=== PATIENT | female | born 1940 | race Two or more races ===

== ENCOUNTER 2017-05-21 09:28 | Emergency (ER) | payer MEDICARE, OTHER ==
[~2017-05-21] VITALS: Ht 160 cm; Wt 83.0 kg
[2017-05-21] MEDS ORDERED: PLAV1TAB2 PO (09:54)
[2017-05-21] MEDS ORDERED: FLON1SPR (09:54)
[2017-05-21] MEDS ORDERED: RISP2TAB32 PO (09:54)
[2017-05-21] MEDS ORDERED: KLOR20PO12 PO (09:54)
[2017-05-21] MEDS ORDERED: BENI5TAB3 PO (09:54)
[2017-05-21] MEDS ORDERED: BIOT10008 PO (09:54)
[2017-05-21] MEDS ORDERED: MULTCAP11 PO (09:54)
[2017-05-21] MEDS ORDERED: SIMV40TA2 PO (09:54)
[2017-05-21] MEDS ORDERED: NITR4TASL SL (09:54)
[2017-05-21] MEDS ORDERED: DEPA1TAB3 PO (09:54)
[2017-05-21] MEDS ORDERED: LASI40TA PO (09:54)
[2017-05-21] MEDS ORDERED: ASPI81TA85 PO (09:54)
[2017-05-21] MEDS ORDERED: BENZ0.5T PO (09:54)
[2017-05-21] MEDS ORDERED: NITROGLYCERIN 0.4 MG SUBL TABLET SL PRN (10:00)
--- NOTE | 2017-05-21 10:22 | REP ---
Portable chest: Single view. History: Chest pain. Comparison study: No comparison study. Findings: The lungs are symmetrically aerated and free of infiltrate. Pleural angles are sharp. Heart is prominent consistent with mild cardiomegaly. There is a granulomatous lymph node calcification in the aortopulmonary window region of the mediastinum. Pulmonary vasculature is not increased. No infiltrate is seen. There is no evidence of pulmonary edema or pleural effusion. Impression: Mild cardiomegaly. Old granulomatous changes. Otherwise no acute disease. Signed by Ze Holley MD 05/21/2017 10:13 A
[2017-05-21 10:23] LABS: BASO % 0.7 % (0.0-1.0); EOS % 0.5 % (0.0-3.0); IMMATURE GRANULOCYTE % 0.4 % (0-0); LYMPH # 0.8 10^3/uL (1.5-4.5); LYMPH % 13.8 % (24.0-44.0); MEAN CORPUSCULAR HEMOGLOBIN 28.8 pg (27.0-33.0); MEAN CORPUSCULAR HGB CONC 32.9 g/dl (32.0-36.5); MEAN CORPUSCULAR VOLUME 87.6 fl (80.0-96.0); MONO # 0.8 10^3/uL (0.0-0.8); MONO % 13.8 % (0.0-5.0); NEUTROPHILS % 70.8 % (36.0-66.0); PLATELET COUNT, AUTOMATED 117 10^3/uL (150-450); RED CELL DISTRIBUTION WIDTH 14.7 % (11.5-14.5); WHITE BLOOD COUNT 5.6 10^3/uL (4.0-10.0)
[2017-05-21 10:53] LABS: ALBUMIN 2.9 GM/DL (3.2-5.2); ALKALINE PHOSPHATASE 63 U/L (45-117); ALT/SGPT 18 U/L (12-78); ANION GAP 7 MEQ/L (8-16); AST/SGOT 12 U/L (15-37); BILIRUBIN,DIRECT 0.1 MG/DL (0.0-0.2); BILIRUBIN,TOTAL 0.2 MG/DL (0.2-1.0); BLOOD UREA NITROGEN 17 MG/DL (7-18); CALCIUM LEVEL 8.5 MG/DL (8.8-10.2); CARBON DIOXIDE LEVEL 29 MEQ/L (21-32); CHLORIDE LEVEL 110 MEQ/L (98-107); CREATININE FOR GFR 0.51 MG/DL (0.55-1.02); GLOMERULAR FILTRATION RATE > 60.0 (>39); GLUCOSE, FASTING 92 MG/DL (83-110); POTASSIUM SERUM 3.6 MEQ/L (3.5-5.1); SODIUM LEVEL 146 MEQ/L (136-145); TOTAL PROTEIN 5.8 GM/DL (6.4-8.2)
[2017-05-21 15:49] VITALS: BP 165/75
--- NOTE | 2017-05-21 20:34 | ECGEPIP ---
Stationary ECG Study [facility] - ED Test Date: 2017-05-21 Pat Name: BUBBA CHI Department: Room: - Gender: F Director Geophysical Laboratory: shilpa : 1940 Requested By: Ruddy Alba Order Number: [id number] Reading MD: Misti Hernandez Measurements Intervals [place] Rate: 62 P: 13 PA: 147 QRS: -2 QRSD: 89 T: 91 QT: 415 QTc: 422 Interpretive Statements SINUS RHYTHM NONSPECIFIC T-WAVE ABNORMALITY DELAYED R PROGRESSION BASELINE ARTIFACT LIMITS INTERPRETATION NO PRIOR FOR COMPARISON Electronically Signed On 05-21-2017 20:33:50 EDT by Misti Hernandez
--- NOTE | 2017-05-21 20:40 | ECGEPIP ---
Stationary ECG Study [facility] - ED Test Date: 2017-05-21 Pat Name: BUBBA CHI Department: Room: - Gender: F Shaft Sinker: Paula : 1940 Requested By: Ruddy Alba Order Number: [id number] Reading MD: Misti Hernandez Measurements Intervals [place] Rate: 52 P: 41 TN: 161 QRS: -6 QRSD: 92 T: 94 QT: 453 QTc: 423 Interpretive Statements SINUS BRADYCARDIA MINIMAL VOLTAGE CRITERIA FOR LVH, CONSIDER NORMAL VARIANT MODERATE T-WAVE ABNORMALITY, CONSIDER ANTEROLATERAL ISCHEMIA, COMPARED 05/21/17 Electronically Signed On 05-21-2017 20:39:43 EDT by Misti Hernandez
== END 2017-05-21 15:50 | disposition home or self-care (01) ==
LOC: EDBD 09:28 → M ED 09:28
DX: R07.89 Other chest pain (principal); R00.1 Bradycardia, unspecified; R94.31 Abnormal electrocardiogram [ECG] [EKG]; I51.7 Cardiomegaly; I25.10 Atherosclerotic heart disease of native coronary artery without angina pectoris; E78.5 Hyperlipidemia, unspecified; I10 Essential (primary) hypertension; F41.9 Anxiety disorder, unspecified; Z95.5 Presence of coronary angioplasty implant and graft; Z87.891 Personal history of nicotine dependence; Z79.82 Long term (current) use of aspirin; Z79.899 Other long term (current) drug therapy; Z88.6 Allergy status to analgesic agent; Z88.8 Allergy status to other drugs, medicaments and biological substances; Z88.5 Allergy status to narcotic agent; Z88.1 Allergy status to other antibiotic agents; Z91.89 Other specified personal risk factors, not elsewhere classified

== ENCOUNTER → 2017-06-05 | Outpatient (REF) | payer MEDICARE, OTHER ==
[~2017-06-05] MED LIST: ASPI81TA85 PO; BENI5TAB3 PO; BENZ0.5T PO; BIOT10008 PO; DEPA1TAB3 PO; FLON1SPR; KLOR20PO12 PO; LASI40TA PO; MULTCAP11 PO; NITR4TASL SL; PLAV1TAB2 PO; RISP2TAB32 PO; SIMV40TA2 PO
== END ==
LOC: M LABDRAWP 12:50
PROVIDERS: ATTEND Internal Medicine Cardiovascular Disease
DX: E78.00 Pure hypercholesterolemia, unspecified (principal); I50.32 Chronic diastolic (congestive) heart failure

== ENCOUNTER → 2017-07-25 | Outpatient (REF) | payer MEDICARE, OTHER | LOC: M SFHCWAGY 10:16 | PROVIDERS: ATTEND Nurse Practitioner Women's Health | DX: Z12.4 Encounter for screening for malignant neoplasm of cervix (principal) ==

== ENCOUNTER → 2017-07-25 | Outpatient (CLI) | payer MEDICARE, OTHER ==
--- NOTE | 2017-07-26 10:16 | REP ---
BILATERAL SCREENING DIGITAL MAMMOGRAM: There are no palpable abnormalities or other breast complaints. The patient states she/he had a clinical breast exam in 07/2017. Comparison is 07/04/2015. There is moderately dense breast parenchyma, unchanged. There are benign calcifications. There has been no interval development of masses, areas of structural distortion or clusters of microcalcifications typical of malignancy. IMPRESSION:There is no evidence of malignancy. BI-RADS category 2 benign findings. The patient should have a repeat mammogram in 1 year. This mammogram was interpreted with the aid of an FDA-approved computer-aided detection system. A. Negative x-ray reports should not delay biopsy if a dominant or clinically suspicious mass is present. B. Not all breast cancers are identified by x-ray. C. Adenosis and dense breasts may obscure an underlying neoplasm. Patient letter M1.
== END ==
LOC: M WHC 09:21 → EDUNIT# 10:00
PROVIDERS: ATTEND Physician Assistant Medical
DX: Z12.31 Encounter for screening mammogram for malignant neoplasm of breast (principal)

== ENCOUNTER → 2017-08-02 | Outpatient (REF) | payer MEDICARE, OTHER ==
[2017-08-02 12:04] LABS: MAGNESIUM LEVEL 2.4 MG/DL (1.8-2.4)
== END ==
LOC: M LABDRAWP 11:26
PROVIDERS: ATTEND Internal Medicine Cardiovascular Disease
DX: I50.42 Chronic combined systolic (congestive) and diastolic (congestive) heart failure (principal); Z51.81 Encounter for therapeutic drug level monitoring; Z79.899 Other long term (current) drug therapy

== ENCOUNTER → 2017-08-02 | Outpatient (REF) | payer MEDICARE, OTHER ==
[2017-08-02 12:03] LABS: ALBUMIN 3.4 GM/DL (3.2-5.2); ALKALINE PHOSPHATASE 64 U/L (45-117); ALT/SGPT 15 U/L (12-78); ANION GAP 6 MEQ/L (8-16); AST/SGOT 12 U/L (7-37); BILIRUBIN,TOTAL 0.5 MG/DL (0.2-1.0); BLOOD UREA NITROGEN 24 MG/DL (7-18); CALCIUM LEVEL 8.3 MG/DL (8.8-10.2); CARBON DIOXIDE LEVEL 31 MEQ/L (21-32); CHLORIDE LEVEL 109 MEQ/L (98-107); CHOLESTEROL LEVEL 109 MG/DL (<200); CREATININE FOR GFR 0.57 MG/DL (0.55-1.02); GLOMERULAR FILTRATION RATE > 60.0 (>39); GLUCOSE, FASTING 80 MG/DL (83-110); POTASSIUM SERUM 3.8 MEQ/L (3.5-5.1); SODIUM LEVEL 146 MEQ/L (136-145); TOTAL PROTEIN 6.5 GM/DL (6.4-8.2); TRIGLYCERIDES LEVEL 56 MG/DL (<150)
== END ==
LOC: M SFHCPLAZ 08:38
PROVIDERS: ATTEND Physician Assistant Medical
DX: E78.00 Pure hypercholesterolemia, unspecified (principal)

== ENCOUNTER → 2017-08-02 | Outpatient (REF) | payer MEDICARE, OTHER | LOC: M LABDRAWP 11:23 | PROVIDERS: ATTEND Psychiatry & Neurology Psychiatry | DX: Z51.81 Encounter for therapeutic drug level monitoring (principal); Z79.899 Other long term (current) drug therapy ==

== ENCOUNTER → 2017-08-09 | Outpatient (REF) | payer MEDICARE, OTHER ==
[2017-08-09 15:57] LABS: ANION GAP 6 MEQ/L (8-16); BLOOD UREA NITROGEN 26 MG/DL (7-18); CALCIUM LEVEL 8.9 MG/DL (8.8-10.2); CARBON DIOXIDE LEVEL 32 MEQ/L (21-32); CHLORIDE LEVEL 108 MEQ/L (98-107); GLOMERULAR FILTRATION RATE > 60.0 (>39); GLUCOSE, FASTING 75 MG/DL (83-110); POTASSIUM SERUM 4.2 MEQ/L (3.5-5.1); SODIUM LEVEL 146 MEQ/L (136-145)
== END ==
LOC: M SFHCPLAZ 12:07
DX: I50.22 Chronic systolic (congestive) heart failure (principal)
CPT/HCPCS: 80048

== ENCOUNTER → 2017-08-15 | Outpatient (REF) | payer MEDICARE, OTHER | LOC: M SFHCLERA 11:52 | DX: L57.8 Other skin changes due to chronic exposure to nonionizing radiation (principal); D23.39 Other benign neoplasm of skin of other parts of face | CPT/HCPCS: 88305 ==

== ENCOUNTER → 2017-12-16 | Outpatient (REF) | payer MEDICARE, OTHER ==
[2017-12-16 15:59] LABS: BASO % 0.6 % (0.0-1.0); EOS % 0.5 % (0.0-3.0); HEMATOCRIT 38.8 % (36.0-47.0); HEMOGLOBIN 12.9 g/dl (12.0-15.5); IMMATURE GRANULOCYTE % 0.2 % (0-3.0); LYMPH # 1.2 10^3/uL (1.5-4.5); LYMPH % 19.6 % (24.0-44.0); MEAN CORPUSCULAR HEMOGLOBIN 29.4 pg (27.0-33.0); MEAN CORPUSCULAR HGB CONC 33.2 g/dl (32.0-36.5); MEAN CORPUSCULAR VOLUME 88.4 fl (80.0-96.0); MONO # 0.8 10^3/uL (0.0-0.8); NEUTROPHILS # 4.2 10^3/uL (1.8-7.7); NEUTROPHILS % 67.1 % (36.0-66.0); PLATELET COUNT, AUTOMATED 113 10^3/uL (150-450); RED BLOOD COUNT 4.39 10^6/uL (4.00-5.40); RED CELL DISTRIBUTION WIDTH 14.4 % (11.5-14.5); WHITE BLOOD COUNT 6.2 10^3/uL (4.0-10.0)
[2017-12-16 16:00] LABS: APPEARANCE, URINE HAZY (CLEAR); BACTERIA, URINE AUTO NEGATIVE (NEGATIVE); BILIRUBIN, URINE AUTO NEGATIVE (NEGATIVE); BLOOD, URINE BLOOD NEGATIVE (NEGATIVE); COLOR, URINE YELLOW (YELLOW); GLUCOSE, URINE (UA) AUTO NEGATIVE (NEGATIVE); KETONE, URINE AUTO NEGATIVE (NEGATIVE); LEUKOCYTE ESTERASE, URINE AUTO 1+ (NEGATIVE); NITRITE, URINE AUTO NEGATIVE (NEGATIVE); PROTEIN, URINE AUTO NEGATIVE (NEGATIVE); RBC, URINE AUTO 1 /HPF (0-3); SPECIFIC GRAVITY URINE AUTO 1.014 (1.002-1.035); SQUAMOUS EPITHELIAL CELL UR AU 2 /HPF (0-6); UROBILINOGEN, URINE AUTO 0.2 mg/dL (0.0-2.0); WBC, URINE AUTO 6 /HPF (0-3)
== END ==
LOC: M SFHCPLAZ 14:24
DX: R31.0 Gross hematuria (principal)
CPT/HCPCS: 85025

== ENCOUNTER → 2017-12-17 | Outpatient (CLI) | payer MEDICARE, OTHER | LOC: M WHC 12:52 | DX: N95.0 Postmenopausal bleeding (principal); N85.8 Other specified noninflammatory disorders of uterus | CPT/HCPCS: 76830 ==

== ENCOUNTER → 2018-01-24 | Outpatient (REF) | payer MEDICARE, OTHER ==
[2018-01-24 14:01] LABS: ALBUMIN 3.1 GM/DL (3.2-5.2); ALBUMIN/GLOBULIN RATIO 0.94 (1.00-1.93); ALKALINE PHOSPHATASE 58 U/L (45-117); ALT/SGPT 15 U/L (12-78); AST/SGOT 12 U/L (7-37); BILIRUBIN,DIRECT 0.2 MG/DL (0.0-0.2); BILIRUBIN,TOTAL 0.6 MG/DL (0.2-1.0); TOTAL PROTEIN 6.4 GM/DL (6.4-8.2); VALPROIC ACID (DEPAKOTE) 52.1 UG/ML (50.0-100.0)
== END ==
LOC: M LABDRAWP 12:34
DX: Z51.81 Encounter for therapeutic drug level monitoring (principal); Z79.899 Other long term (current) drug therapy

== ENCOUNTER → 2018-01-24 | Outpatient (REF) | payer MEDICARE, OTHER ==
[2018-01-24 13:15] LABS: ALBUMIN 3.2 GM/DL (3.2-5.2); ALKALINE PHOSPHATASE 55 U/L (45-117); ALT/SGPT 16 U/L (12-78); ANION GAP 6 MEQ/L (8-16); AST/SGOT 12 U/L (7-37); BILIRUBIN,TOTAL 0.6 MG/DL (0.2-1.0); BLOOD UREA NITROGEN 16 MG/DL (7-18); CALCIUM LEVEL 8.4 MG/DL (8.8-10.2); CARBON DIOXIDE LEVEL 29 MEQ/L (21-32); CHLORIDE LEVEL 105 MEQ/L (98-107); CREATININE FOR GFR 0.56 MG/DL (0.55-1.30); GLOMERULAR FILTRATION RATE > 60.0 (>39); GLUCOSE, FASTING 73 MG/DL (70-100); NT-PRO BNP 1403 PG/ML (<450); POTASSIUM SERUM 3.9 MEQ/L (3.5-5.1); SODIUM LEVEL 140 MEQ/L (136-145); TOTAL PROTEIN 6.4 GM/DL (6.4-8.2)
== END ==
LOC: M SFHCPLAZ 07:30
DX: I50.22 Chronic systolic (congestive) heart failure (principal); Z51.81 Encounter for therapeutic drug level monitoring; Z79.899 Other long term (current) drug therapy
CPT/HCPCS: 80164

== ENCOUNTER → 2018-01-27 | Outpatient (REF) | payer MEDICARE, OTHER ==
[2018-01-27 16:16] LABS: ALBUMIN 3.2 GM/DL (3.2-5.2); ALBUMIN/GLOBULIN RATIO 0.97 (1.00-1.93); ALKALINE PHOSPHATASE 59 U/L (45-117); ALT/SGPT 19 U/L (12-78); ANION GAP 7 MEQ/L (8-16); AST/SGOT 12 U/L (7-37); BILIRUBIN,TOTAL 0.3 MG/DL (0.2-1.0); BLOOD UREA NITROGEN 17 MG/DL (7-18); CALCIUM LEVEL 8.8 MG/DL (8.8-10.2); CARBON DIOXIDE LEVEL 30 MEQ/L (21-32); CHLORIDE LEVEL 107 MEQ/L (98-107); CREATININE FOR GFR 0.54 MG/DL (0.55-1.30); GLOMERULAR FILTRATION RATE > 60.0 (>39); GLUCOSE, FASTING 79 MG/DL (70-100); NT-PRO BNP 1676 PG/ML (<450); POTASSIUM SERUM 3.9 MEQ/L (3.5-5.1); SODIUM LEVEL 144 MEQ/L (136-145); TOTAL PROTEIN 6.5 GM/DL (6.4-8.2)
== END ==
LOC: M SFHCPLAZ 13:40
DX: I50.22 Chronic systolic (congestive) heart failure (principal)
CPT/HCPCS: 80053

== ENCOUNTER → 2018-02-10 | Outpatient (REF) | payer MEDICARE, OTHER ==
[2018-02-10 12:04] LABS: ALBUMIN 3.4 GM/DL (3.2-5.2); ALBUMIN/GLOBULIN RATIO 1.03 (1.00-1.93); ALKALINE PHOSPHATASE 63 U/L (45-117); ALT/SGPT 19 U/L (12-78); ANION GAP 8 MEQ/L (8-16); AST/SGOT 25 U/L (7-37); BILIRUBIN,TOTAL 0.5 MG/DL (0.2-1.0); BLOOD UREA NITROGEN 16 MG/DL (7-18); CARBON DIOXIDE LEVEL 29 MEQ/L (21-32); CHLORIDE LEVEL 108 MEQ/L (98-107); CREATININE FOR GFR 0.52 MG/DL (0.55-1.30); GLOMERULAR FILTRATION RATE > 60.0 (>39); GLUCOSE, FASTING 90 MG/DL (70-100); NT-PRO BNP 1627 PG/ML (<450); SODIUM LEVEL 145 MEQ/L (136-145); TOTAL PROTEIN 6.7 GM/DL (6.4-8.2)
== END ==
LOC: M SFHCPLAZ 09:08
DX: I50.22 Chronic systolic (congestive) heart failure (principal)
CPT/HCPCS: 80053

== ENCOUNTER 2018-03-07 12:41 | Day surgery (SDC) | payer MEDICARE, OTHER ==
[2018-03-07] MEDS: NS 1,000 ML IV (12:00)
[2018-03-07] MEDS ORDERED: LIDOCAINE 2% INJ 100 MG/5 ML SDV (FOR ANES.) As Ordered (13:26)
[2018-03-07] MEDS ORDERED: PROPOFOL 200 MG/20 ML VIAL As Ordered (13:26)
== END 2018-03-07 15:12 | disposition home or self-care (01) ==
LOC: M OPP 12:41
DX: K64.0 First degree hemorrhoids (principal); K57.30 Diverticulosis of large intestine without perforation or abscess without bleeding; R19.5 Other fecal abnormalities; I10 Essential (primary) hypertension; E78.00 Pure hypercholesterolemia, unspecified; Z79.82 Long term (current) use of aspirin; Z79.899 Other long term (current) drug therapy; Z88.8 Allergy status to other drugs, medicaments and biological substances; Z91.040 Latex allergy status; Z90.49 Acquired absence of other specified parts of digestive tract; Z95.5 Presence of coronary angioplasty implant and graft
CPT/HCPCS: 45378

== ENCOUNTER → 2018-03-18 | Outpatient (REF) | payer MEDICARE, OTHER | LOC: M SFHCPLAZ 13:05 | DX: J02.9 Acute pharyngitis, unspecified (principal) | CPT/HCPCS: 87070 ==

== ENCOUNTER 2018-03-19 18:20 | Inpatient (IN) | payer MEDICARE, OTHER ==
[2018-03-19] MEDS: NS 500 ML IV (19:58)
[2018-03-19 20:19] LABS: BASO % 0.1 % (0.0-1.0); HEMATOCRIT 35.8 % (36.0-47.0); HEMOGLOBIN 11.9 g/dl (12.0-15.5); IMMATURE GRANULOCYTE % 1.4 % (0-3.0); LYMPH # 0.4 10^3/uL (1.5-4.5); LYMPH % 2.6 % (24.0-44.0); MEAN CORPUSCULAR HEMOGLOBIN 29.5 pg (27.0-33.0); MEAN CORPUSCULAR HGB CONC 33.2 g/dl (32.0-36.5); MEAN CORPUSCULAR VOLUME 88.8 fl (80.0-96.0); MONO # 0.6 10^3/uL (0.0-0.8); MONO % 4.2 % (0.0-5.0); NEUTROPHILS # 13.7 10^3/uL (1.8-7.7); NEUTROPHILS % 91.7 % (36.0-66.0); RED BLOOD COUNT 4.03 10^6/uL (4.00-5.40); RED CELL DISTRIBUTION WIDTH 14.3 % (11.5-14.5); WHITE BLOOD COUNT 14.9 10^3/uL (4.0-10.0)
[2018-03-19 20:22] LABS: ALBUMIN 2.8 GM/DL (3.2-5.2); ALBUMIN/GLOBULIN RATIO 0.93 (1.00-1.93); ALKALINE PHOSPHATASE 52 U/L (45-117); ALT/SGPT 19 U/L (12-78); ANION GAP 11 MEQ/L (8-16); AST/SGOT 17 U/L (7-37); BILIRUBIN,DIRECT 0.4 MG/DL (0.0-0.2); BILIRUBIN,TOTAL 0.9 MG/DL (0.2-1.0); BLOOD UREA NITROGEN 26 MG/DL (7-18); CALCIUM LEVEL 8.4 MG/DL (8.8-10.2); CARBON DIOXIDE LEVEL 25 MEQ/L (21-32); CHLORIDE LEVEL 101 MEQ/L (98-107); CPK CREATINE PHOSPHOKINASE 97 U/L (26-192); CREATININE FOR GFR 0.63 MG/DL (0.55-1.30); GLOMERULAR FILTRATION RATE > 60.0 (>39); GLUCOSE, FASTING 115 MG/DL (70-100); LIPASE 54 U/L (73-393); POTASSIUM SERUM 2.9 MEQ/L (3.5-5.1); SODIUM LEVEL 137 MEQ/L (136-145); TOTAL PROTEIN 5.8 GM/DL (6.4-8.2); TROPONIN I 0.08 NG/ML (< 0.10); VALPROIC ACID (DEPAKOTE) 19.3 UG/ML (50.0-100.0)
[2018-03-19 20:23] LABS: CK-MB VALUE MASS < 1.0 NG/ML (<3.6); MB/CK RELATIVE INDEX 1.03 (< OR =4)
[2018-03-19 21:32] LABS: KETONE, URINE AUTO RFX TRACE mg/dL (NEGATIVE); MUCUS, URINE RFX SMALL (NEGATIVE); NITRITE, URINE AUTO RFX NEGATIVE (NEGATIVE); RBC, URINE AUTO RFX 16 /HPF (0-3); SPECIFIC GRAVITY UR AUTO RFX 1.025 (1.002-1.035); SQUAM EPITHELIAL CELL UR AURFX 4 /HPF (0-6); WBC, URINE AUTO RFX 10 /HPF (0-3)
[2018-03-19 21:38] LABS: LEUKOCYTE ESTERASE UR AUTO RFX TRACE (NEGATIVE)
[2018-03-19 21:39] LABS: IMMATURE PLATELET FRACTION % 20.3 % (0.0-9.6); PLATELET COUNT, AUTOMATED 67 10^3/uL (150-450)
[2018-03-19] MEDS: POTASSIUM CHLORIDE 10 MEQ SR TABLET PO (21:47)
[2018-03-19] MEDS: cefTRIAXone SOD 1 GM in D5W MINI-BAG PLUS 50 ML IV (22:15)
[2018-03-19 22:45] LABS: LACTIC ACID SEPSIS PROTOCOL 1.2 MMOL/L (0.4-2.0)
[2018-03-19] MEDS ORDERED: NITROGLYCERIN 0.4 MG SUBL TABLET SL (23:45)
[2018-03-20] MEDS ORDERED: ISOVUE-370 76% 100ML VIAL (Q9967) As Ordered (00:06)
[2018-03-20] MEDS: risperiDONE 1 MG TAB PO (00:33)
[2018-03-20] MEDS: BENZTROPINE 0.5 MG TAB PO (00:33)
[2018-03-20 01:02] LABS: MAGNESIUM LEVEL 1.9 MG/DL (1.8-2.4)
[2018-03-20] MEDS: KCL 10MEQ/100ML SWI (KRUN) 10 MEQ in APPROPRIATE DILUENT 1 EA IV ×4 (02:00→07:35)
[2018-03-20] MEDS: CLINDAMYCIN 600 MG in APPROPRIATE DILUENT 1 EA IV ×4 (02:00→19:51)
[2018-03-20] MEDS: dexameTHASONE 20 MG/5 ML VIAL (J1100) IV ×3 (02:15→18:20)
[2018-03-20] MEDS: NS 1,000 ML IV ×2 (02:15→16:25)
[2018-03-20] MEDS: ACETAMINOPHEN TAB 650MG DOSE (2X325MG) PO (03:17)
[2018-03-20] MEDS: POTASSIUM CHLORIDE 10 MEQ SR TABLET PO (03:17)
[2018-03-20] MEDS ORDERED: PILL CRUSHER/CUTTER 1 EACH XX (04:45)
[2018-03-20 05:35] LABS: BASO % 0.1 % (0.0-1.0); HEMOGLOBIN 11.8 g/dl (12.0-15.5); IMMATURE GRANULOCYTE % 1.3 % (0-3.0); LYMPH # 0.3 10^3/uL (1.5-4.5); LYMPH % 1.4 % (24.0-44.0); MEAN CORPUSCULAR HEMOGLOBIN 29.1 pg (27.0-33.0); MEAN CORPUSCULAR HGB CONC 32.8 g/dl (32.0-36.5); MEAN CORPUSCULAR VOLUME 88.7 fl (80.0-96.0); MONO % 5.2 % (0.0-5.0); NEUTROPHILS # 17.4 10^3/uL (1.8-7.7); RED BLOOD COUNT 4.06 10^6/uL (4.00-5.40); RED CELL DISTRIBUTION WIDTH 14.6 % (11.5-14.5); WHITE BLOOD COUNT 18.9 10^3/uL (4.0-10.0)
[2018-03-20 05:39] LABS: PLATELET COUNT, AUTOMATED 73 10^3/uL (150-450); POSITIVE DIFF POS FLAG
[2018-03-20 05:46] LABS: ANION GAP 7 MEQ/L (8-16); BLOOD UREA NITROGEN 23 MG/DL (7-18); CALCIUM LEVEL 8.5 MG/DL (8.8-10.2); CARBON DIOXIDE LEVEL 26 MEQ/L (21-32); CHLORIDE LEVEL 103 MEQ/L (98-107); CREATININE FOR GFR 0.57 MG/DL (0.55-1.30); GLOMERULAR FILTRATION RATE > 60.0 (>39); GLUCOSE, FASTING 133 MG/DL (70-100); POTASSIUM SERUM 4.7 MEQ/L (3.5-5.1); SODIUM LEVEL 136 MEQ/L (136-145)
[2018-03-20] MEDS ORDERED: FUROSEMIDE 40 MG TAB PO (09:00)
[2018-03-20] MEDS: ASPIRIN 81 MG ENTERIC TAB PO (09:16)
[2018-03-20] MEDS: NYSTATIN 500,000 U/5 ML SUSP UDC SS ×3 (09:16→20:13)
[2018-03-20] MEDS: MULTIVITAMINS/MINERALS THERAP 1 TAB PO (09:16)
[2018-03-20] MEDS: FLUTICASONE PROP 0.05% NASAL SPRAY 16 GM (FLONASE) NARES (09:17)
[2018-03-20] MEDS: CANDESARTAN 16 MG TABLET PO (11:23)
[2018-03-20] MEDS: NYSTATIN 100,000 UNITS/GM TOPICAL PWD 15 GM TOP (19:56)
[2018-03-20] MEDS ORDERED: SIMVASTATIN 20 MG TAB PO (21:00)
[2018-03-20] MEDS ORDERED: DIVALPROEX 500 MG TAB PO (21:00)
[2018-03-20] MEDS ORDERED: cefTRIAXone SOD 1 GM in D5W MINI-BAG PLUS 50 ML IV (23:00)
[2018-03-21] MEDS: dexameTHASONE 20 MG/5 ML VIAL (J1100) IV ×3 (02:03→17:45)
[2018-03-21] MEDS: CLINDAMYCIN 600 MG in APPROPRIATE DILUENT 1 EA IV ×4 (02:04→20:26)
[2018-03-21 06:53] LABS: HEMATOCRIT 35.1 % (36.0-47.0); HEMOGLOBIN 11.9 g/dl (12.0-15.5); MEAN CORPUSCULAR HEMOGLOBIN 29.8 pg (27.0-33.0); MEAN CORPUSCULAR HGB CONC 33.9 g/dl (32.0-36.5); RED BLOOD COUNT 3.99 10^6/uL (4.00-5.40); RED CELL DISTRIBUTION WIDTH 14.5 % (11.5-14.5); WHITE BLOOD COUNT 11.1 10^3/uL (4.0-10.0)
[2018-03-21 06:57] LABS: PLATELET COUNT, AUTOMATED 79 10^3/uL (150-450)
[2018-03-21 06:58] LABS: IMMATURE PLATELET FRACTION % 26.9 % (0.0-9.6); PLATELET F 21.3
[2018-03-21 07:00] LABS: ANION GAP 8 MEQ/L (8-16); BLOOD UREA NITROGEN 26 MG/DL (7-18); CALCIUM LEVEL 8.4 MG/DL (8.8-10.2); CARBON DIOXIDE LEVEL 24 MEQ/L (21-32); CHLORIDE LEVEL 107 MEQ/L (98-107); CREATININE FOR GFR 0.54 MG/DL (0.55-1.30); GLOMERULAR FILTRATION RATE > 60.0 (>39); GLUCOSE, FASTING 146 MG/DL (70-100); POTASSIUM SERUM 4.8 MEQ/L (3.5-5.1); SODIUM LEVEL 139 MEQ/L (136-145)
[2018-03-21] MEDS: NYSTATIN 500,000 U/5 ML SUSP UDC SS ×3 (09:34→20:13)
[2018-03-21] MEDS: NYSTATIN 100,000 UNITS/GM TOPICAL PWD 15 GM TOP ×2 (09:34→20:18)
[2018-03-21] MEDS: FLUTICASONE PROP 0.05% NASAL SPRAY 16 GM (FLONASE) NARES (09:35)
[2018-03-21] MEDS: MULTIVITAMINS/MINERALS THERAP 1 TAB PO (11:20)
[2018-03-21] MEDS: ASPIRIN 81 MG ENTERIC TAB PO (11:20)
[2018-03-21] MEDS: CANDESARTAN 16 MG TABLET PO (11:20)
[2018-03-21] MEDS: BENZTROPINE 0.5 MG TAB PO (20:16)
[2018-03-21] MEDS: risperiDONE 1 MG TAB PO (20:17)
[2018-03-21] MEDS: SIMVASTATIN 20 MG TAB PO (20:17)
[2018-03-21] MEDS: DIVALPROEX 500 MG TAB PO (20:18)
[2018-03-22] MEDS: CLINDAMYCIN 600 MG in APPROPRIATE DILUENT 1 EA IV ×4 (02:12→20:41)
[2018-03-22] MEDS: dexameTHASONE 20 MG/5 ML VIAL (J1100) IV ×2 (02:12→10:27)
[2018-03-22 04:39] LABS: HEMATOCRIT 34.8 % (36.0-47.0); HEMOGLOBIN 11.7 g/dl (12.0-15.5); MEAN CORPUSCULAR HEMOGLOBIN 29.5 pg (27.0-33.0); MEAN CORPUSCULAR HGB CONC 33.6 g/dl (32.0-36.5); MEAN CORPUSCULAR VOLUME 87.7 fl (80.0-96.0); PLATELET COUNT, AUTOMATED 99 10^3/uL (150-450); RED BLOOD COUNT 3.97 10^6/uL (4.00-5.40); RED CELL DISTRIBUTION WIDTH 14.3 % (11.5-14.5); WHITE BLOOD COUNT 8.9 10^3/uL (4.0-10.0)
[2018-03-22 04:57] LABS: ANION GAP 6 MEQ/L (8-16); BLOOD UREA NITROGEN 28 MG/DL (7-18); CALCIUM LEVEL 8.3 MG/DL (8.8-10.2); CARBON DIOXIDE LEVEL 26 MEQ/L (21-32); CHLORIDE LEVEL 108 MEQ/L (98-107); CREATININE FOR GFR 0.45 MG/DL (0.55-1.30); GLOMERULAR FILTRATION RATE > 60.0 (>39); GLUCOSE, FASTING 144 MG/DL (70-100); POTASSIUM SERUM 4.6 MEQ/L (3.5-5.1); SODIUM LEVEL 140 MEQ/L (136-145)
[2018-03-22] MEDS: MULTIVITAMINS/MINERALS THERAP 1 TAB PO (08:44)
[2018-03-22] MEDS: CANDESARTAN 16 MG TABLET PO (08:44)
[2018-03-22] MEDS: ASPIRIN 81 MG ENTERIC TAB PO (08:44)
[2018-03-22] MEDS: NYSTATIN 500,000 U/5 ML SUSP UDC SS ×3 (08:44→20:41)
[2018-03-22] MEDS: FLUTICASONE PROP 0.05% NASAL SPRAY 16 GM (FLONASE) NARES (08:45)
[2018-03-22] MEDS: NYSTATIN 100,000 UNITS/GM TOPICAL PWD 15 GM TOP ×2 (08:45→20:43)
[2018-03-22] MEDS ORDERED: predniSONE 20 MG TAB PO (16:00)
[2018-03-22] MEDS: PANTOPRAZOLE 40MG TAB (PROTONIX) PO (18:36)
[2018-03-22] MEDS: risperiDONE 1 MG TAB PO (20:41)
[2018-03-22] MEDS: SIMVASTATIN 20 MG TAB PO (20:41)
[2018-03-22] MEDS: DIVALPROEX 500 MG TAB PO (20:42)
[2018-03-22] MEDS: predniSONE 20 MG TAB PO (20:42)
[2018-03-22] MEDS: BENZTROPINE 0.5 MG TAB PO (20:42)
[2018-03-23] MEDS: CLINDAMYCIN 600 MG in APPROPRIATE DILUENT 1 EA IV ×4 (02:09→21:52)
[2018-03-23 06:31] LABS: HEMATOCRIT 36.1 % (36.0-47.0); HEMOGLOBIN 12.2 g/dl (12.0-15.5); MEAN CORPUSCULAR HGB CONC 33.8 g/dl (32.0-36.5); PLATELET COUNT, AUTOMATED 128 10^3/uL (150-450); RED CELL DISTRIBUTION WIDTH 14.4 % (11.5-14.5); WHITE BLOOD COUNT 10.1 10^3/uL (4.0-10.0)
[2018-03-23 06:55] LABS: ANION GAP 7 MEQ/L (8-16); BLOOD UREA NITROGEN 20 MG/DL (7-18); CALCIUM LEVEL 8.3 MG/DL (8.8-10.2); CARBON DIOXIDE LEVEL 25 MEQ/L (21-32); CHLORIDE LEVEL 110 MEQ/L (98-107); CREATININE FOR GFR 0.43 MG/DL (0.55-1.30); GLOMERULAR FILTRATION RATE > 60.0 (>39); GLUCOSE, FASTING 113 MG/DL (70-100); POTASSIUM SERUM 4.7 MEQ/L (3.5-5.1); SODIUM LEVEL 142 MEQ/L (136-145)
[2018-03-23] MEDS: PANTOPRAZOLE 40MG TAB (PROTONIX) PO (09:00)
[2018-03-23] MEDS: CANDESARTAN 16 MG TABLET PO (09:20)
[2018-03-23] MEDS: ASPIRIN 81 MG ENTERIC TAB PO (09:21)
[2018-03-23] MEDS: MULTIVITAMINS/MINERALS THERAP 1 TAB PO (09:21)
[2018-03-23] MEDS: predniSONE 20 MG TAB PO ×3 (09:21→21:53)
[2018-03-23] MEDS: NYSTATIN 500,000 U/5 ML SUSP UDC SS ×3 (09:28→21:53)
[2018-03-23] MEDS: FLUTICASONE PROP 0.05% NASAL SPRAY 16 GM (FLONASE) NARES (09:29)
[2018-03-23] MEDS: NYSTATIN 100,000 UNITS/GM TOPICAL PWD 15 GM TOP ×2 (09:30→21:54)
[2018-03-23] MEDS: PANTOPRAZOLE 40MG INJ (PROTONIX) (C9113) IV (18:00)
[2018-03-23] MEDS: SIMVASTATIN 20 MG TAB PO (21:52)
[2018-03-23] MEDS: BENZTROPINE 0.5 MG TAB PO (21:52)
[2018-03-23] MEDS: risperiDONE 1 MG TAB PO (21:53)
[2018-03-23] MEDS: DIVALPROEX 500 MG TAB PO (21:53)
[2018-03-24] MEDS: CLINDAMYCIN 600 MG in APPROPRIATE DILUENT 1 EA IV ×3 (01:16→14:03)
[2018-03-24 06:32] LABS: HEMATOCRIT 37.7 % (36.0-47.0); HEMOGLOBIN 13.1 g/dl (12.0-15.5); MEAN CORPUSCULAR HEMOGLOBIN 29.4 pg (27.0-33.0); MEAN CORPUSCULAR HGB CONC 34.7 g/dl (32.0-36.5); MEAN CORPUSCULAR VOLUME 84.7 fl (80.0-96.0); PLATELET COUNT, AUTOMATED 154 10^3/uL (150-450); RED BLOOD COUNT 4.45 10^6/uL (4.00-5.40); RED CELL DISTRIBUTION WIDTH 14.2 % (11.5-14.5); WHITE BLOOD COUNT 8.6 10^3/uL (4.0-10.0)
[2018-03-24 06:50] LABS: ANION GAP 7 MEQ/L (8-16); BLOOD UREA NITROGEN 15 MG/DL (7-18); CALCIUM LEVEL 8.3 MG/DL (8.8-10.2); CARBON DIOXIDE LEVEL 26 MEQ/L (21-32); CHLORIDE LEVEL 109 MEQ/L (98-107); CREATININE FOR GFR 0.45 MG/DL (0.55-1.30); GLOMERULAR FILTRATION RATE > 60.0 (>39); GLUCOSE, FASTING 86 MG/DL (70-100); POTASSIUM SERUM 4.4 MEQ/L (3.5-5.1); SODIUM LEVEL 142 MEQ/L (136-145)
[2018-03-24] MEDS: PANTOPRAZOLE 40MG INJ (PROTONIX) (C9113) IV (08:34)
[2018-03-24] MEDS: MULTIVITAMINS/MINERALS THERAP 1 TAB PO (08:35)
[2018-03-24] MEDS: CANDESARTAN 16 MG TABLET PO (08:35)
[2018-03-24] MEDS: ASPIRIN 81 MG ENTERIC TAB PO (08:35)
[2018-03-24] MEDS: NYSTATIN 500,000 U/5 ML SUSP UDC SS ×2 (08:35→15:42)
[2018-03-24] MEDS: predniSONE 20 MG TAB PO ×2 (08:35→15:42)
[2018-03-24] MEDS: FLUTICASONE PROP 0.05% NASAL SPRAY 16 GM (FLONASE) NARES (08:36)
[2018-03-24] MEDS: NYSTATIN 100,000 UNITS/GM TOPICAL PWD 15 GM TOP (08:36)
[2018-03-24] MEDS ORDERED: AUGMENTIN BID 400MG/5ML SUSP 50ML BTL PO (09:00)
== END 2018-03-24 16:50 | disposition home or self-care (01) | DRG 872 ==
LOC: M ED INP 23:28 → M MS5PR 03-22 14:28 → M ED 18:20 → M ICU 03-20 04:36
DX: A41.9 Sepsis, unspecified organism (principal); J39.0 Retropharyngeal and parapharyngeal abscess; I50.22 Chronic systolic (congestive) heart failure; I11.0 Hypertensive heart disease with heart failure; D69.6 Thrombocytopenia, unspecified; E78.5 Hyperlipidemia, unspecified; F31.9 Bipolar disorder, unspecified; I25.10 Atherosclerotic heart disease of native coronary artery without angina pectoris; Z95.2 Presence of prosthetic heart valve; Z79.82 Long term (current) use of aspirin; Z79.899 Other long term (current) drug therapy; Z88.5 Allergy status to narcotic agent; Z88.8 Allergy status to other drugs, medicaments and biological substances; Z91.040 Latex allergy status

== ENCOUNTER → 2018-03-31 | Outpatient (REF) | payer MEDICARE, OTHER ==
[2018-03-31 12:51] LABS: ALBUMIN 2.9 GM/DL (3.2-5.2); ALKALINE PHOSPHATASE 48 U/L (45-117); ALT/SGPT 29 U/L (12-78); ANION GAP 9 MEQ/L (8-16); AST/SGOT 11 U/L (7-37); BILIRUBIN,TOTAL 0.5 MG/DL (0.2-1.0); BLOOD UREA NITROGEN 20 MG/DL (7-18); CALCIUM LEVEL 8.2 MG/DL (8.8-10.2); CARBON DIOXIDE LEVEL 30 MEQ/L (21-32); CHLORIDE LEVEL 107 MEQ/L (98-107); GLOMERULAR FILTRATION RATE > 60.0 (>39); GLUCOSE, FASTING 94 MG/DL (70-100); POTASSIUM SERUM 3.9 MEQ/L (3.5-5.1); SODIUM LEVEL 146 MEQ/L (136-145); TOTAL PROTEIN 5.8 GM/DL (6.4-8.2)
[2018-03-31 13:06] LABS: BASO % 0.1 % (0.0-1.0); HEMATOCRIT 37.8 % (36.0-47.0); HEMOGLOBIN 12.6 g/dl (12.0-15.5); IMMATURE GRANULOCYTE % 0.4 % (0-3.0); LYMPH # 1.2 10^3/uL (1.5-4.5); LYMPH % 12.3 % (24.0-44.0); MEAN CORPUSCULAR HGB CONC 33.3 g/dl (32.0-36.5); MEAN CORPUSCULAR VOLUME 87.1 fl (80.0-96.0); MONO # 0.7 10^3/uL (0.0-0.8); MONO % 7.7 % (0.0-5.0); NEUTROPHILS # 7.7 10^3/uL (1.8-7.7); NEUTROPHILS % 79.5 % (36.0-66.0); PLATELET COUNT, AUTOMATED 166 10^3/uL (150-450); RED BLOOD COUNT 4.34 10^6/uL (4.00-5.40); RED CELL DISTRIBUTION WIDTH 14.5 % (11.5-14.5); WHITE BLOOD COUNT 9.6 10^3/uL (4.0-10.0)
== END ==
LOC: M SFHCPLAZ 10:27
DX: J02.0 Streptococcal pharyngitis (principal); E87.6 Hypokalemia
CPT/HCPCS: 80053

== ENCOUNTER 2018-04-02 11:07 | Outpatient (RCR) | payer MEDICARE, OTHER | END 2018-04-11 | LOC: M ST 11:07 | DX: R13.10 Dysphagia, unspecified (principal); J39.0 Retropharyngeal and parapharyngeal abscess | CPT/HCPCS: 92610 ==

== ENCOUNTER → 2018-06-06 | Outpatient (REF) | payer MEDICARE, OTHER ==
[2018-06-06 15:59] LABS: VALPROIC ACID (DEPAKOTE) 47.7 UG/ML (50.0-100.0)
== END ==
LOC: M LABDRAWP 12:08
DX: Z51.81 Encounter for therapeutic drug level monitoring (principal); Z79.899 Other long term (current) drug therapy

== ENCOUNTER → 2018-06-06 | Outpatient (REF) | payer MEDICARE, OTHER ==
[2018-06-06 15:28] LABS: ALBUMIN 3.3 GM/DL (3.2-5.2); ALBUMIN/GLOBULIN RATIO 1.18 (1.00-1.93); ALKALINE PHOSPHATASE 62 U/L (45-117); ALT/SGPT 19 U/L (12-78); ANION GAP 8 MEQ/L (8-16); AST/SGOT 17 U/L (7-37); BILIRUBIN,TOTAL 0.5 MG/DL (0.2-1.0); BLOOD UREA NITROGEN 13 MG/DL (7-18); CALCIUM LEVEL 8.9 MG/DL (8.8-10.2); CARBON DIOXIDE LEVEL 30 MEQ/L (21-32); CHLORIDE LEVEL 107 MEQ/L (98-107); CHOLESTEROL LEVEL 111 MG/DL (<200); CHOLESTEROL RISK RATIO 2.265 (<5); CREATININE FOR GFR 0.49 MG/DL (0.55-1.30); GLOMERULAR FILTRATION RATE > 60.0 (>39); GLUCOSE, FASTING 83 MG/DL (70-100); HDL CHOLESTEROL 49 MG/DL (>40); LDL CHOLESTEROL 52 MG/DL (<100); NON-HDL-C 62 MG/DL; NT-PRO BNP 1331 PG/ML (<450); POTASSIUM SERUM 3.7 MEQ/L (3.5-5.1); SODIUM LEVEL 145 MEQ/L (136-145); TOTAL PROTEIN 6.1 GM/DL (6.4-8.2); TRIGLYCERIDES LEVEL 49 MG/DL (<150)
== END ==
LOC: M LAB REF 12:59
DX: E78.5 Hyperlipidemia, unspecified (principal); I11.0 Hypertensive heart disease with heart failure; I50.9 Heart failure, unspecified; E70.5 Disorders of tryptophan metabolism; Z51.81 Encounter for therapeutic drug level monitoring; Z79.899 Other long term (current) drug therapy
CPT/HCPCS: 80164

== ENCOUNTER → 2018-07-23 | Outpatient (REF) | payer MEDICARE, OTHER ==
[2018-07-23 13:17] LABS: ALBUMIN 3.1 GM/DL (3.2-5.2); ALBUMIN/GLOBULIN RATIO 1.03 (1.00-1.93); ALKALINE PHOSPHATASE 68 U/L (45-117); ALT/SGPT 20 U/L (12-78); ANION GAP 10 MEQ/L (8-16); AST/SGOT 17 U/L (7-37); BILIRUBIN,TOTAL 0.4 MG/DL (0.2-1.0); BLOOD UREA NITROGEN 18 MG/DL (7-18); CALCIUM LEVEL 8.4 MG/DL (8.8-10.2); CARBON DIOXIDE LEVEL 25 MEQ/L (21-32); CHLORIDE LEVEL 109 MEQ/L (98-107); CHOLESTEROL LEVEL 123 MG/DL (<200); CHOLESTEROL RISK RATIO 2.562 (<5); CPK CREATINE PHOSPHOKINASE 35 U/L (26-192); CREATININE FOR GFR 0.49 MG/DL (0.55-1.30); FREE T4 1.08 NG/DL (0.76-1.46); GLOMERULAR FILTRATION RATE > 60.0 (>39); GLUCOSE, FASTING 75 MG/DL (70-100); HDL CHOLESTEROL 48 MG/DL (>40); LDL CHOLESTEROL 64 MG/DL (<100); NON-HDL-C 75 MG/DL; NT-PRO BNP 1355 PG/ML (<450); POTASSIUM SERUM 3.9 MEQ/L (3.5-5.1); SODIUM LEVEL 144 MEQ/L (136-145); TOTAL PROTEIN 6.1 GM/DL (6.4-8.2); TRIGLYCERIDES LEVEL 53 MG/DL (<150)
== END ==
LOC: M SFHCPLAZ 09:44
DX: I50.22 Chronic systolic (congestive) heart failure (principal); E78.00 Pure hypercholesterolemia, unspecified; F31.9 Bipolar disorder, unspecified
CPT/HCPCS: 82550

== ENCOUNTER → 2018-07-28 | Outpatient (CLI) | payer MEDICARE, OTHER ==
[~2018-07-28] MED LIST changes: +AMOX400S PO; +ASPI81TAEC PO; +CAND32TA9 PO; +DIVA500T94 PO; +NEXI40CA PO; +NEXI40GR PO; +PRED5EL PO; +RISP1TAB3 PO; +SIMV20TA2 PO; +VITMTA PO
--- NOTE | 2018-07-28 11:34 | REPMRS ---
Patient History The patient states she has not had a clinical breast exam in over a year. Patient is postmenopausal and has history of other cancer at age 74. Family history of breast cancer under age 50 in maternal cousin, breast cancer under age 50 in paternal cousin, colorectal cancer under age 50 in paternal cousin, breast cancer at age 50 or over in maternal cousin, breast cancer at age 50 or over in maternal cousin. Digital Woman Screen Mammo: July 28, 2018 - Exam #: [id number] Bilateral CC and MLO view(s) were taken. Technologist: Deloris Stephens Technologist Prior study comparison: July 25, 2017, digital woman screen mammo performed at [facility]. July 17, 2016, digital bilateral screening mammo, performed at [facility]. July 04, 2015, bilateral digital woman screen mammo, performed at [facility]. FINDINGS: There are scattered fibroglandular densities. There has been no change in the appearance of the mammogram from the prior studies. There is a mild amount of scattered fibroglandular density which is fairly symmetric. There is no interval development of dominant mass, architectural distortion, or clustered microcalcification suggestive of malignancy. 3-D tomosynthesis shows no additional findings. Assessment: BI-RADS/ACR category 1 mammogram. Negative. Recommendation Routine screening mammogram of both breasts in 1 year (for women over age 40). This patient's Lifetime Breast Cancer RIsk is estimated at 2.9 %. This mammogram was interpreted with the aid of an FDA-approved computer-aided dectection system. Electronically Signed By: Misael Holley MD 07/28/18 [id number]
== END ==
LOC: M WHC 09:14
PROVIDERS: ATTEND Physician Assistant Medical
DX: Z12.31 Encounter for screening mammogram for malignant neoplasm of breast (principal); Z78.0 Asymptomatic menopausal state; Z85.9 Personal history of malignant neoplasm, unspecified

== ENCOUNTER → 2018-08-28 | Outpatient (CLI) | payer MEDICARE, OTHER ==
[~2018-08-28] MED LIST changes: -LASI40TA PO; +LASI40TA9 PO
--- NOTE | 2018-08-28 17:48 | REP ---
Pelvic sonography: History: Postmenopausal bleeding. Findings: Transabdominal scanning was unsatisfactory due to lack of bladder filling. Transvaginal scanning demonstrates normal uterine dimensions of 8.6 x 4.1 x 4.6 cm. Endometrial echo is 0.2 cm thick. There is a fibroid in the fundus of the uterus measuring 4.6 x 3.4 x 3.8 cm. No ovarian lesion is seen. Right ovary measures 1.1 x 0.8 x 0.9 cm. Left ovarian dimensions are 1.2 x 0.6 x 0.8 cm. Impression: 4.6 cm fundal fibroid. Otherwise negative pelvic sonography.
== END ==
LOC: M WHC 07:37
PROVIDERS: ATTEND Nurse Practitioner Women's Health
DX: D25.9 Leiomyoma of uterus, unspecified (principal); N95.0 Postmenopausal bleeding

== ENCOUNTER → 2018-10-16 | Outpatient (REF) | payer MEDICARE, OTHER ==
[~2018-10-16] MED LIST changes: +CORE3.12 PO; +HYDR10TAB PO; +LASI40TA9
[2018-10-21 00:08] LABS: HPV HYBRID CAPTURE II Negative (Negative)
== END ==
LOC: M SFHCWAGY 14:58
PROVIDERS: ATTEND Nurse Practitioner Women's Health
DX: Z12.4 Encounter for screening for malignant neoplasm of cervix (principal); Z87.898 Personal history of other specified conditions
CPT/HCPCS: 87624; G0101; G0123

== ENCOUNTER 2018-10-31 19:10 | Emergency (ER) | payer MEDICARE, OTHER ==
[~2018-10-31] VITALS: Ht 160 cm; Wt 77.3 kg
[~2018-10-31 19:10] MED LIST changes: -CORE3.12 PO; -HYDR10TAB PO; -LASI40TA9
[2018-10-31] MEDS ORDERED: GI COCKTAIL 50ML BTL(HYOSCYAMINE/MAALOX/LIDOCAINE VISCOUS)(1:3:1) PO ONE (20:30)
[2018-10-31 20:44] LABS: BASO # 0.1 10^3/uL (0.0-0.2); EOS # 0.1 10^3/uL (0.0-0.50); EOS % 2.3 % (0.0-3.0); HEMATOCRIT 38.5 % (36.0-47.0); HEMOGLOBIN 12.8 g/dl (12.0-15.5); LYMPH # 1.3 10^3/uL (1.5-4.5); LYMPH % 27.2 % (24.0-44.0); MEAN CORPUSCULAR HEMOGLOBIN 29.6 pg (27.0-33.0); MEAN CORPUSCULAR HGB CONC 33.2 g/dl (32.0-36.5); MEAN CORPUSCULAR VOLUME 88.9 fl (80.0-96.0); MONO # 0.8 10^3/uL (0.0-0.8); MONO % 16.2 % (0.0-5.0); NEUTROPHILS # 2.6 10^3/uL (1.8-7.7); NEUTROPHILS % 53.1 % (36.0-66.0); RED BLOOD COUNT 4.33 10^6/uL (4.00-5.40); WHITE BLOOD COUNT 4.8 10^3/uL (4.0-10.0)
[2018-10-31 20:46] LABS: INR 1.01; PROTHROMBIN TIME 13.4 SECONDS (12.1-14.4)
[2018-10-31 20:55] LABS: PARTIAL THROMBOPLASTIN TIME 28.5 SECONDS (25.4-37.6); PLATELET COUNT, AUTOMATED 94 10^3/uL (150-450)
[2018-10-31 21:02] LABS: ALBUMIN 3.3 GM/DL (3.2-5.2); ALT/SGPT 24 U/L (12-78); BILIRUBIN,DIRECT < 0.1 MG/DL (0.0-0.2); BILIRUBIN,TOTAL 0.4 MG/DL (0.2-1.0); BLOOD UREA NITROGEN 28 MG/DL (7-18); C REACTIVE PROTEIN QUANTITATIV < 0.30 MG/DL (0.00-0.30); CALCIUM LEVEL 8.1 MG/DL (8.8-10.2); CARBON DIOXIDE LEVEL 28 MEQ/L (21-32); CHLORIDE LEVEL 109 MEQ/L (98-107); CPK CREATINE PHOSPHOKINASE 59 U/L (26-192); CREATININE FOR GFR 0.58 MG/DL (0.55-1.30); GLOMERULAR FILTRATION RATE > 60.0 (>39); GLUCOSE, FASTING 94 MG/DL (70-100); MB/CK RELATIVE INDEX 1.86 (< OR =4); NT-PRO BNP 1059 PG/ML (<450); POTASSIUM SERUM 4.4 MEQ/L (3.5-5.1); SODIUM LEVEL 143 MEQ/L (136-145); TOTAL PROTEIN 6.3 GM/DL (6.4-8.2); TROPONIN I < 0.02 NG/ML (< 0.10)
[2018-10-31 21:14] LABS: ERYTHROCYTE SEDIMENTATION RATE 9 mm/hr (0-30)
[2018-10-31] MEDS ORDERED: NITROGLYCERIN 2% OINT 1 GM *U/D* PKT TOP ONE (22:15)
[2018-10-31] MEDS ORDERED: ISOVUE-370 76% 125ML VIAL (Q9967 PER ML) As Ordered ONE (22:15)
[2018-10-31 23:00] VITALS: BP 162/82
--- NOTE | 2018-10-31 23:09 | REPVR ---
EXAM: CT Angiography Chest With Contrast EXAM DATE/TIME: 10/31/2018 10:23 PM CLINICAL HISTORY: 78 years old, female; Pain; Chest pain; Type not specified TECHNIQUE: Imaging protocol: Axial computed tomographic angiography images of the chest with intravenous contrast using CT angiography protocol. Coronal and sagittal reformatted images were created and reviewed. 3D rendering: MIP reconstructed images were created and reviewed. Radiation optimization: All CT scans at this facility use at least one of these dose optimization techniques: automated exposure control; mA and/or kV adjustment per patient size (includes targeted exams where dose is matched to clinical indication); or iterative reconstruction. Contrast material: ISOVUE 370 Contrast volume: 75 ml Contrast route: IV COMPARISON: CR PORTABLE CHEST X-RAY 10/31/2018 8:36 PM FINDINGS: Pulmonary arteries: No pulmonary embolus. Aorta: The aorta demonstrates mild atherosclerotic calcification. No aortic aneurysm or dissection. Lungs: Multiple bilateral subcentimeter noncalcified pulmonary parenchymal nodules. Findings may be secondary to inflammatory or infectious disease however metastatic disease not excluded. There is bibasilar compressive atelectasis. Pleural space: Normal. No pneumothorax. No pleural effusion. Heart: Cardiomegaly. Calcified mitral valve annulus. Liver: Cyst left lobe of the liver measures 1 7 centimeters. Gallbladder and bile ducts: Status post cholecystectomy. Spleen: The spleen demonstrates punctate calcifications, consistent with remote granulomatous organism exposure. Lymph nodes: Calcified left mediastinal and hilar lymphadenopathy. Bones/joints: The spine demonstrates mild degenerative changes. Osteoporosis. Calcified granuloma left upper lobe. Soft tissues: Unremarkable. IMPRESSION: 1. Multiple bilateral subcentimeter noncalcified pulmonary parenchymal nodules. Findings may be secondary to inflammatory or infectious disease however metastatic disease not excluded. 2. No aortic aneurysm or dissection. 3. No pulmonary embolus. 4. Intrathoracic findings consistent with remote granulomatous infection. Electronically signed by: Jorge Shin On 10/31/2018 23:09:07 PM
[2018-10-31] MEDS ORDERED: MORPHINE 2 MG/ML 1ML SYRINGE (J2270) IV ONE (23:45)
[2018-10-31 23:48] LABS: CK-MB VALUE MASS < 1.0 NG/ML (<3.6); CPK CREATINE PHOSPHOKINASE 59 U/L (26-192); MB/CK RELATIVE INDEX 1.69 (< OR =4); TROPONIN I < 0.02 NG/ML (< 0.10)
[2018-10-31] MEDS ORDERED: HEPARIN DRIP 25,000 UNITS in APPROPRIATE DILUENT 1 EA IV SCH (23:48)
[2018-11-01] MEDS ORDERED: ASPIRIN 81 MG CHEW TABLET PO ONE (00:15)
[2018-11-01 00:23] VITALS: BP 162/82
--- NOTE | 2018-11-01 07:25 | ECGEPIP ---
Stationary ECG Study [facility] - ED Test Date: 2018-10-31 Pat Name: BUBBA CHI Department: Room: - Gender: F Steward/Stewardess Tourist Class: DANIEL : 1940 Requested By: CONSUELO SANCHEZ PA-C. Order Number: [id number] Reading MD: Ruddy Calabrese Measurements Intervals [place] Rate: 61 P: 63 AL: 145 QRS: 4 QRSD: 92 T: 94 QT: 433 QTc: 436 Interpretive Statements SINUS RHYTHM POSSIBLE LEFT ATRIAL ENLARGEMENT POOR R WAVE PROGRESSION LVH WITH STRAIN PATTERN SIMILAR TO 03/19/18 Electronically Signed On 11-01-2018 7:25:10 EDT by Ruddy Calabrese
--- NOTE | 2018-11-01 07:29 | ECGEPIP ---
Stationary ECG Study [facility] - ED Test Date: 2018-10-31 Pat Name: BUBBA CHI Department: Room: - Gender: F Supervisor Insulation: gt : 1940 Requested By: OSWALD Kaur Order Number: [id number] Reading MD: Ruddy Calabrese Measurements Intervals [place] Rate: 60 P: 58 [place]: 164 QRS: 0 QRSD: 98 T: 81 QT: 439 QTc: 441 Interpretive Statements SINUS RHYTHM PRIOR SEPTAL INFARCT NSTTW ABNORMALITIES SIMILAR TO PRIOR ON SAME DATE Electronically Signed On 11-01-2018 7:29:14 EDT by Ruddy Calabrese
--- NOTE | 2018-11-01 10:49 | REP ---
CHEST, PORTABLE: AP portable view of the chest is performed. No acute infiltrate is seen. There is cardiomegaly. There is calcification of the thoracic aorta. The mediastinal silhouette is unchanged. There are degenerative changes of the spine. IMPRESSION: Mild chronic accentuation of interstitial markings without evidence of acute infiltrate. Cardiomegaly. Electronically Signed by Kenyon Pruitt MD 11/01/2018 06:55 P
--- NOTE | 2018-11-03 11:38 | ED PDOC ---
Post-Departure Follow-Up bashir woodward faxed formal report of cta chest for fu Jose Hi MD Nov 03, 2018 11:38
== END 2018-11-01 01:40 | disposition short-term general hospital (02) ==
LOC: M ED 19:10
DX: I25.10 Atherosclerotic heart disease of native coronary artery without angina pectoris (principal); I20.0 Unstable angina; R91.8 Other nonspecific abnormal finding of lung field; I51.7 Cardiomegaly; I10 Essential (primary) hypertension; R78.5 Finding of other psychotropic drug in blood; Z79.82 Long term (current) use of aspirin; Z79.899 Other long term (current) drug therapy; Z88.6 Allergy status to analgesic agent; Z88.8 Allergy status to other drugs, medicaments and biological substances; Z88.5 Allergy status to narcotic agent; Z91.040 Latex allergy status
CPT/HCPCS: 71045; 71275; 80048; 80076; 82550; 82553; 83880; 84443; 84484; 85025; 85049; 85055; 85610; 85652; 85730; 86140; 93005; 93041; 94760; 96374; 99285; J2270; Q9967

== ENCOUNTER 2018-11-04 21:47 | Emergency (ER) | payer MEDICARE, OTHER ==
[~2018-11-04] VITALS: Ht 160 cm; Wt 77.3 kg
[2018-11-04 23:13] LABS: BASO % 0.6 % (0.0-1.0); EOS # 0.1 10^3/uL (0.0-0.50); EOS % 1.6 % (0.0-3.0); HEMATOCRIT 37.6 % (36.0-47.0); HEMOGLOBIN 12.4 g/dl (12.0-15.5); LYMPH % 20.1 % (24.0-44.0); MEAN CORPUSCULAR HEMOGLOBIN 29.1 pg (27.0-33.0); MEAN CORPUSCULAR VOLUME 88.3 fl (80.0-96.0); MONO # 0.8 10^3/uL (0.0-0.8); MONO % 15.4 % (0.0-5.0); NEUTROPHILS # 3.1 10^3/uL (1.8-7.7); NEUTROPHILS % 62.1 % (36.0-66.0); RED BLOOD COUNT 4.26 10^6/uL (4.00-5.40); WHITE BLOOD COUNT 4.9 10^3/uL (4.0-10.0)
[2018-11-04 23:15] LABS: PROTHROMBIN TIME 13.3 SECONDS (12.1-14.4)
[2018-11-04 23:16] LABS: PARTIAL THROMBOPLASTIN TIME 28.6 SECONDS (25.4-37.6)
[2018-11-04 23:28] LABS: BLOOD UREA NITROGEN 20 MG/DL (7-18); CARBON DIOXIDE LEVEL 28 MEQ/L (21-32); CHLORIDE LEVEL 109 MEQ/L (98-107); CREATININE FOR GFR 0.42 MG/DL (0.55-1.30); GLOMERULAR FILTRATION RATE > 60.0 (>39); GLUCOSE, FASTING 92 MG/DL (70-100); SODIUM LEVEL 144 MEQ/L (136-145)
[2018-11-04 23:29] LABS: ALBUMIN 3.1 GM/DL (3.2-5.2); ALT/SGPT 62 U/L (12-78); BILIRUBIN,DIRECT < 0.1 MG/DL (0.0-0.2); BILIRUBIN,TOTAL 0.4 MG/DL (0.2-1.0); CPK CREATINE PHOSPHOKINASE 78 U/L (26-192); MB/CK RELATIVE INDEX 1.41 (< OR =4); NT-PRO BNP 2006 PG/ML (<450); TOTAL PROTEIN 6.1 GM/DL (6.4-8.2); TROPONIN I < 0.02 NG/ML (< 0.10)
[2018-11-04 23:48] LABS: PLATELET COUNT, AUTOMATED 88 10^3/uL (150-450)
[2018-11-05 00:41] LABS: APPEARANCE, URINE HAZY (CLEAR); BACTERIA, URINE AUTO NEGATIVE (NEGATIVE); BILIRUBIN, URINE AUTO NEGATIVE (NEGATIVE); BLOOD, URINE BLOOD NEGATIVE (NEGATIVE); COLOR, URINE YELLOW (YELLOW); GLUCOSE, URINE (UA) AUTO NEGATIVE (NEGATIVE); KETONE, URINE AUTO TRACE mg/dL (NEGATIVE); LEUKOCYTE ESTERASE, URINE AUTO 2+ (NEGATIVE); MUCUS, URINE SMALL (NEGATIVE); NITRITE, URINE AUTO NEGATIVE (NEGATIVE); PROTEIN, URINE AUTO NEGATIVE (NEGATIVE); RBC, URINE AUTO 0 /HPF (0-3); SPECIFIC GRAVITY URINE AUTO 1.009 (1.002-1.035); SQUAMOUS EPITHELIAL CELL UR AU 1 /HPF (0-6); UROBILINOGEN, URINE AUTO 0.2 mg/dL (0.0-2.0); WBC, URINE AUTO 6 /HPF (0-3)
[2018-11-05] MEDS ORDERED: HYDR10TAB PO (01:14)
[2018-11-05 01:15] VITALS: BP 158/68
[2018-11-05] MEDS ORDERED: **hydrALAZINE HCL** 25 MG TAB PO ONE (01:15)
[2018-11-05] MEDS ORDERED: PILL CRUSHER/CUTTER 1 EACH XX ONE (01:19)
--- NOTE | 2018-11-05 08:09 | REP ---
Portable chest x-ray: Single view. History: Chest pain. Comparison chest x-ray: October 31, 2018. Findings: EKG monitoring electrodes overlie the chest. Heart is mildly enlarged unchanged. Pulmonary vasculature is not increased. Pleural angles are sharp. No infiltrate is seen. Granulomatous lymph node calcification is visible in the aortopulmonary window region of the mediastinum. There are degenerative changes in the thoracic spine and shoulders. Impression: Mild cardiomegaly unchanged. No active disease. Electronically Signed by Ze Holley MD 11/05/2018 08:01 A
--- NOTE | 2018-11-05 08:11 | ECGEPIP ---
Stationary ECG Study [facility] - ED Test Date: 2018-11-04 Pat Name: BUBBA CHI Department: Room: - Gender: F Chain Dyer: ARIELLA : 1940 Requested By: ALL Johnson Order Number: [id number] Reading MD: Ruddy Calabrese Measurements Intervals [place] Rate: 74 P: 7 [place]: 158 QRS: 8 QRSD: 94 T: 69 QT: 353 QTc: 393 Interpretive Statements SINUS RHYTHM WITH SINUS ARRHYTHMIA POSSIBLE LEFT VENTRICULAR HYPERTROPHY POSSIBLE ANTERIOR MYOCARDIAL INFARCTION, OF INDETERMINATE AGE Electronically Signed On 11-05-2018 8:11:35 EDT by Ruddy Calabrese
== END 2018-11-05 01:27 | disposition home or self-care (01) ==
LOC: M ED 21:47
DX: I16.0 Hypertensive urgency (principal); I25.10 Atherosclerotic heart disease of native coronary artery without angina pectoris; E78.5 Hyperlipidemia, unspecified; I51.7 Cardiomegaly; Z79.82 Long term (current) use of aspirin; Z79.899 Other long term (current) drug therapy; Z88.6 Allergy status to analgesic agent; Z88.8 Allergy status to other drugs, medicaments and biological substances; Z88.5 Allergy status to narcotic agent; Z91.040 Latex allergy status

== ENCOUNTER 2018-11-07 15:19 | Emergency (ER) | payer MEDICARE, OTHER ==
[~2018-11-07] VITALS: Ht 160 cm; Wt 78.5 kg
[~2018-11-07 15:19] MED LIST changes: +HYDR10TAB PO
[2018-11-07] MEDS ORDERED: CAND32TA9 PO (15:55)
[2018-11-07] MEDS ORDERED: CORE3.12 PO (15:59)
[2018-11-07] MEDS ORDERED: LASI40TA9 (16:06)
[2018-11-07 17:08] LABS: APPEARANCE, URINE HAZY (CLEAR); BACTERIA, URINE AUTO NEGATIVE (NEGATIVE); BILIRUBIN, URINE AUTO NEGATIVE (NEGATIVE); BLOOD, URINE BLOOD NEGATIVE (NEGATIVE); COLOR, URINE YELLOW (YELLOW); GLUCOSE, URINE (UA) AUTO NEGATIVE (NEGATIVE); KETONE, URINE AUTO TRACE mg/dL (NEGATIVE); LEUKOCYTE ESTERASE, URINE AUTO NEGATIVE (NEGATIVE); NITRITE, URINE AUTO NEGATIVE (NEGATIVE); PROTEIN, URINE AUTO NEGATIVE (NEGATIVE); RBC, URINE AUTO 1 /HPF (0-3); SPECIFIC GRAVITY URINE AUTO 1.006 (1.002-1.035); SQUAMOUS EPITHELIAL CELL UR AU 0 /HPF (0-6); UROBILINOGEN, URINE AUTO 0.2 mg/dL (0.0-2.0); WBC, URINE AUTO 2 /HPF (0-3)
[2018-11-07 17:11] LABS: BASO # 0.1 10^3/uL (0.0-0.2); BASO % 1.1 % (0.0-1.0); EOS # 0.1 10^3/uL (0.0-0.50); EOS % 1.8 % (0.0-3.0); HEMATOCRIT 37.6 % (36.0-47.0); HEMOGLOBIN 12.4 g/dl (12.0-15.5); LYMPH # 1.2 10^3/uL (1.5-4.5); LYMPH % 21.4 % (24.0-44.0); MEAN CORPUSCULAR HEMOGLOBIN 28.6 pg (27.0-33.0); MEAN CORPUSCULAR VOLUME 86.8 fl (80.0-96.0); MONO # 0.8 10^3/uL (0.0-0.8); MONO % 14.6 % (0.0-5.0); NEUTROPHILS # 3.3 10^3/uL (1.8-7.7); NEUTROPHILS % 61.1 % (36.0-66.0); RED BLOOD COUNT 4.33 10^6/uL (4.00-5.40); WHITE BLOOD COUNT 5.4 10^3/uL (4.0-10.0)
[2018-11-07 17:20] LABS: PLATELET COUNT, AUTOMATED 99 10^3/uL (150-450)
[2018-11-07 17:41] LABS: BLOOD UREA NITROGEN 20 MG/DL (7-18); CALCIUM LEVEL 8.6 MG/DL (8.8-10.2); CARBON DIOXIDE LEVEL 27 MEQ/L (21-32); CHLORIDE LEVEL 107 MEQ/L (98-107); CREATININE FOR GFR 0.43 MG/DL (0.55-1.30); GLOMERULAR FILTRATION RATE > 60.0 (>39); GLUCOSE, FASTING 85 MG/DL (70-100); POTASSIUM SERUM 4.4 MEQ/L (3.5-5.1); SODIUM LEVEL 143 MEQ/L (136-145)
[2018-11-07 18:15] VITALS: BP 156/70
--- NOTE | 2018-11-07 19:49 | ECGEPIP ---
Stationary ECG Study [facility] - ED Test Date: 2018-11-07 Pat Name: BUBBA CHI Department: Room: - Gender: F Certified Nurses Aide: KENDALL : 1940 Requested By: Jose Erwin Order Number: [id number] Reading MD: Jose Erwin Measurements Intervals [place] Rate: 59 P: 41 [place]: 163 QRS: 12 QRSD: 101 T: 77 QT: 427 QTc: 424 Interpretive Statements SINUS BRADYCARDIA ANTEROSEPTAL MYOCARDIAL INFARCTION, PROBABLY RECENT NONSPECIFIC ST T WAVE CHANGES CW 11/04/[address] T WAVE CHANGES Electronically Signed On 11-07-2018 19:49:35 EDT by Jose Erwin
== END 2018-11-07 19:10 | disposition home or self-care (01) ==
LOC: M ED 15:19
DX: I10 Essential (primary) hypertension (principal); R00.1 Bradycardia, unspecified; I50.9 Heart failure, unspecified; I25.2 Old myocardial infarction; F41.9 Anxiety disorder, unspecified; F32.9 Major depressive disorder, single episode, unspecified; Z95.5 Presence of coronary angioplasty implant and graft; Z79.82 Long term (current) use of aspirin; Z79.899 Other long term (current) drug therapy; Z88.6 Allergy status to analgesic agent; Z88.8 Allergy status to other drugs, medicaments and biological substances; Z88.5 Allergy status to narcotic agent; Z91.040 Latex allergy status

== ENCOUNTER → 2018-11-10 | Outpatient (REF) | payer MEDICARE, OTHER ==
[~2018-11-10] MED LIST changes: +CORE3.12 PO; +LASI40TA9
== END ==
LOC: M LABDRAWP 08:35
PROVIDERS: ATTEND Psychiatry & Neurology Psychiatry
DX: Z51.81 Encounter for therapeutic drug level monitoring (principal); Z79.01 Long term (current) use of anticoagulants
CPT/HCPCS: 36415; 80164; G0463

== ENCOUNTER → 2019-02-06 | Outpatient (REF) | payer MEDICARE, OTHER ==
[2019-02-06 10:52] LABS: BASO % 0.9 % (0.0-1.0); EOS # 0.1 10^3/uL (0.0-0.50); EOS % 1.5 % (0.0-3.0); HEMATOCRIT 36.6 % (36.0-47.0); HEMOGLOBIN 12.1 g/dl (12.0-15.5); LYMPH # 0.8 10^3/uL (1.5-4.5); MEAN CORPUSCULAR HEMOGLOBIN 30.1 pg (27.0-33.0); MEAN CORPUSCULAR HGB CONC 33.1 g/dl (32.0-36.5); MONO # 0.7 10^3/uL (0.0-0.8); MONO % 14.8 % (0.0-5.0); NEUTROPHILS % 65.6 % (36.0-66.0); RED BLOOD COUNT 4.02 10^6/uL (4.00-5.40); WHITE BLOOD COUNT 4.6 10^3/uL (4.0-10.0)
[2019-02-06 10:56] LABS: PLATELET COUNT, AUTOMATED 93 10^3/uL (150-450)
[2019-02-06 11:19] LABS: ALT/SGPT 19 U/L (12-78); BILIRUBIN,TOTAL 0.4 MG/DL (0.2-1.0); BLOOD UREA NITROGEN 23 MG/DL (7-18); CALCIUM LEVEL 8.1 MG/DL (8.8-10.2); CARBON DIOXIDE LEVEL 29 MEQ/L (21-32); CHLORIDE LEVEL 108 MEQ/L (98-107); CREATININE FOR GFR 0.58 MG/DL (0.55-1.30); GLOMERULAR FILTRATION RATE > 60.0 (>39); GLUCOSE, FASTING 110 MG/DL (70-100); NT-PRO BNP 1219 PG/ML (<450); POTASSIUM SERUM 3.9 MEQ/L (3.5-5.1); SODIUM LEVEL 143 MEQ/L (136-145); TOTAL PROTEIN 5.9 GM/DL (6.4-8.2)
== END ==
LOC: M SFHCPLAZ 08:11
PROVIDERS: ATTEND Physician Assistant Medical
DX: I11.0 Hypertensive heart disease with heart failure (principal); E78.00 Pure hypercholesterolemia, unspecified; I50.22 Chronic systolic (congestive) heart failure

== ENCOUNTER 2019-02-23 09:35 | Inpatient (IN) | payer MEDICARE, OTHER ==
[~2019-02-23] VITALS: Ht 160 cm; Wt 78.9 kg
[~2019-02-23 09:35] MED LIST changes: -BENZ0.5T PO; +BENZ0.5T23 PO; -LASI40TA9
[2019-02-23 10:30] LABS: HEMATOCRIT 35.4 % (36.0-47.0); HEMOGLOBIN 11.9 g/dl (12.0-15.5); MEAN CORPUSCULAR HEMOGLOBIN 29.9 pg (27.0-33.0); MEAN CORPUSCULAR HGB CONC 33.6 g/dl (32.0-36.5); MEAN CORPUSCULAR VOLUME 88.9 fl (80.0-96.0); PLATELET COUNT, AUTOMATED 105 10^3/uL (150-450); RED BLOOD COUNT 3.98 10^6/uL (4.00-5.40); WHITE BLOOD COUNT 8.1 10^3/uL (4.0-10.0)
--- NOTE | 2019-02-23 10:42 | REP ---
PORTABLE CHEST: AP portable view of the chest was performed. There is left basilar infiltrate and pleural fluid present. The right lung demonstrates no evidence of acute infiltrate. Cardiac silhouette appears prominent. There is calcification of the thoracic aorta. There are degenerative changes of the spine. IMPRESSION: Left basilar infiltrate and pleural effusion. Electronically Signed by Kenyon Pruitt MD 02/23/2019 01:12 P
[2019-02-23 10:54] LABS: EOSINOPHILS 1 % (0-5); LYMPHOCYTES 17 % (16-52); MONOCYTES 6 % (0-8); NEUTROPHILS 72 % (35-75); PLATELET ESTIMATE DECREASED (NORMAL)
[2019-02-23 11:03] LABS: BLOOD UREA NITROGEN 23 MG/DL (7-18); CALCIUM LEVEL 8.5 MG/DL (8.8-10.2); CARBON DIOXIDE LEVEL 27 MEQ/L (21-32); CHLORIDE LEVEL 103 MEQ/L (98-107); CK-MB VALUE MASS 1.3 NG/ML (<3.6); CPK CREATINE PHOSPHOKINASE 167 U/L (26-192); CREATININE FOR GFR 0.57 MG/DL (0.55-1.30); GLOMERULAR FILTRATION RATE > 60.0 (>39); GLUCOSE, FASTING 95 MG/DL (70-100); MB/CK RELATIVE INDEX 0.78 (< OR =4); NT-PRO BNP 1294 PG/ML (<450); POTASSIUM SERUM 4.5 MEQ/L (3.5-5.1); SODIUM LEVEL 137 MEQ/L (136-145); TROPONIN I < 0.02 NG/ML (< 0.10)
--- NOTE | 2019-02-23 11:13 | REP ---
CT of the chest without IV contrast: Comparison is the plain film portable study performed earlier today. There is a large infiltrate involving the entire left lower lobe. There is an infiltrate posteriorly in the lingular segment of the left upper lobe. There is a small left pleural effusion. The right lung is clear. The Cardiac size is enlarged. There is a small pericardial effusion measuring up to 6 mm anteriorly versus pericardial thickening. The unenhanced thoracic aorta is unremarkable except for calcified atheroma. No mediastinal adenopathy as I would the in the upper abdomen there is a 4.2 cm cyst in the hepatic left lobe. Impression: Large left lower lobe infiltrate. Small infiltrate in the lingula. Small left pleural effusion. Cardiomegaly. Small pericardial effusion versus pericardial thickening. Hepatic left lobe cyst. Electronically Signed by Kenyon Majano MD 02/23/2019 11:05 A
[2019-02-23] MEDS ORDERED: cefTRIAXone SOD 2 GM in D5W MINI-BAG PLUS 50 ML IV ONE (11:30)
[2019-02-23] MEDS ORDERED: KLOR20TA42 PO (11:33)
[2019-02-23] MEDS ORDERED: FUROSEMIDE 20 MG/2 ML VIAL (J1940) IV ONE (12:00)
[2019-02-23] MEDS: IPRATROPIUM 0.5MG/ALBUTEROL 2.5MG INH SOL UD 3ML (DUONEB)(J7620) INH SCH ×3 (12:00→20:39)
[2019-02-23] MEDS ORDERED: BIOT1000 PO (12:22)
[2019-02-23] MEDS ORDERED: SAVITAB PO (12:22)
[2019-02-23] MEDS ORDERED: HYDR50TA PO (12:22)
[2019-02-23] MEDS ORDERED: AZITHROMYCIN INJ 500 MG, VIAL MATE ADAPTER 1 EACH in D5W 250 ML IV ONE (12:30)
[2019-02-23] MEDS: ENOXAPARIN 40 MG/0.4 ML SYRINGE (J1650) SC SCH (14:43)
[2019-02-23] MEDS: ACETAMINOPHEN TAB 650MG DOSE (2X325MG) PO PRN (18:15)
--- NOTE | 2019-02-23 20:48 | ECGEPIP ---
[facility] - ED Test Date: 2019-02-23 Pat Name: BUBBA CHI Department: Room: - Gender: Female Manager New Product: TC : 1940 Requested By: Ruddy Alba Order Number: [id number] Reading MD: Mike Flores Measurements Intervals [place] Rate: 84 P: 25 [place]: 160 QRS: 3 QRSD: 89 T: 61 QT: 335 QTc: 398 Interpretive Statements SINUS RHYTHM ANTEROSEPTAL MYOCARDIAL INFARCTION, OF INDETERMINATE AGE Nonspecific ST-T wave abnormalities Baseline artifact Similar to tracing done 11-07-18 Electronically Signed on 02-23-2019 20:48:36 EDT by Mike Flores
--- NOTE | 2019-02-23 21:19 | HPEPDOC ---
General Date of Admission Feb 23, 2019 at 11:55 Date of Service: Feb 23, 2019 Chief Complaint The patient is a 78-year-old female admitted with a reason for visit of Pneumonia. Source: Patient, Family Exam Limitations: No limitations Timing/Duration: Week(s), Getting worse Severity: Moderate Associated Symptoms: Shortness of breath History of Present Illness This is a 78-year-old female who notes onset of symptoms since last . She has episodes of being clammy, hot, sweaty. She's had cough but nonproductive. She needs noted pressure in her chest. Today, she became much more short of breath and was brought to the emergency room. She was found to have community-acquired pneumonia. She denies any exposure to anyone who has been ill. She does get flu and pneumonia shots. Home Medications Scheduled Aspirin (Aspirin EC) 81 Mg Tabec, 81 MG PO DAILY, (Reported) Benztropine Mesylate (Benztropine Mesylate) 0.5 Mg Tab, 0.25 MG PO QHS, (Reported) Biotin (Biotin) 1 Mg Tablet, 1,000 MCG PO DAILY, (Reported) Candesartan Cilexetil (Candesartan Cilexetil) 32 Mg Tab, 32 MG PO DAILY, (Reported) Carvedilol (Coreg) 3.125 Mg Tab, 3.125 MG PO BID, (Reported) Divalproex Sodium (Divalproex Sodium) 500 Mg Tab, 500 MG PO QHS, (Reported) Fluticasone Propionate (Flonase Allergy Relief) 50 Mcg/Act Spr, 1 SPRAY NA DAILY, (Reported) Furosemide (Lasix) 40 Mg Tab, 40 MG PO QPM, (Reported) TAKES AT 1600 Hydralazine HCl (Hydralazine HCl) 50 Mg Tablet, 50 MG PO QID, (Reported) Multivitamins (Thera M Plus Tablet) 1 Tab Tab, 1 TAB PO DAILY, (Reported) Potassium Chloride (Klor-Con M20) 20 Meq Tab.er.prt, 20 MEQ PO DAILY, (Reported) Risperidone (Risperidone) 1 Mg Tab, 1.5 MG PO QHS, (Reported) Simvastatin (Simvastatin) 20 Mg Tab, 20 MG PO QHS, (Reported) Vits A,C,E/Zinc/Copper (Savision Tablet) 1 Each Tablet, 1 TAB PO BID, (Reported) Scheduled PRN Nitroglycerin (Nitrostat) 0.4 Mg Subl, 0.4 MG SL NITRO PRN for CHEST PAIN, (Reported) Allergies Coded Allergies: alprazolam (Verified Allergy, Unknown, UNKNOWN REACTION, 02/23/19) amitriptyline (Verified Allergy, Unknown, UNKNOWN REACTION, 02/23/19) chlorpromazine (Verified Allergy, Unknown, UNKNOWN REACTION, 02/23/19) cyclobenzaprine (Verified Allergy, Unknown, UNKNOWN REACTION, 02/23/19) doxycycline (Verified Allergy, Unknown, UNKNOWN REACTION, 02/23/19) hydrocodone (Verified Allergy, Unknown, UNKNOWN REACTION, 02/23/19) hydrocortisone (Verified Allergy, Unknown, UNKNOWN REACTION, 02/23/19) isosorbide (Verified Allergy, Unknown, UNKNOWN REACTION, 02/23/19) latex (Verified Allergy, Unknown, RASH, 02/23/19) naproxen (Verified Allergy, Unknown, CAN'T TAKE PER CARDIOLOGY, 02/23/19) spironolactone (Verified Allergy, Unknown, UNKNOWN REACTION, 02/23/19) torsemide (Verified Allergy, Unknown, UNKNOWN REACTION, 02/23/19) Past Medical History Medical History Past medical history includes a 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 Patient reports that she went to an outlying hospital 3 months ago for an episode of chest pressure. Workup was negative for any coronary artery disease. Surgical History Surgical history includes cholecystectomy, excision of a growth on her thumb, excision of a skin cancer lesion to her nose Family History Significant Family History: Cancer, Heart disease, Other (patient reports a sibling with congestive heart failure) Social History * Smoker: non-smoker Alcohol: Denies Psychosocial History: Other (grief; patient just lost her in January.) The patient's a retired housewife. Her CODE STATUS is DNR/DNI. She has designated her daughter and her son to be her healthcare proxies. A-FIB/CHADSVASC A-FIB History Current/History of A-Fib/PAF?: No Current PO Anticoag Therapy: No Review of Systems Other systems Review of 10 systems is otherwise negative except as stated in the brief presentation Physical Examination General Exam: Positive: Mild Distress, Other (ill-appearing) Eye Exam: Positive: PERRLA, Conjunctiva & lids normal, Other Eye Symptoms (scleral injection) ENT Exam: Positive: Atraumatic, Mucous membr. moist/pink, Pharynx Normal, Nares Patent Neck Exam: Positive: Supple Chest Exam: Positive: Rhonchi (greater on the left than on the right), Other (coarse nonproductive cough; voice is hoarse) Heart Exam: Positive: Rate Normal, Regular Rhythm, Normal S1, Normal S2; Negative: Murmurs, Rubs Abdomen Exam: Positive: Normal bowel sounds, Soft; Negative: Tenderness, Hepatospenomegaly Extremity Exam: Positive: Normal pulses; Negative: Clubbing, Cyanosis, Edema Skin Exam: Positive: Nl turgor and temperature; Negative: Breakdown, Lesion Psych Exam: Positive: Oriented x 3, Other (appropriately depressed given her 's recent ) Vital Signs Vital Signs Date Time Temp Pulse Resp B/P (MAP) Pulse Ox O2 Delivery O2 Flow Rate FiO2 02/23/19 17:52 100.4 02/23/19 15:30 57 108/53 (71) 92 Nasal Cannula 2.0 02/23/19 09:35 34 Laboratory Data Labs 24H Laboratory Tests 2 02/23/19 10:15: White Blood Count 8.1, Red Blood Count 3.98L, Hemoglobin 11.9L, Hematocrit 35.4L , Mean Corpuscular Volume 88.9, Mean Corpuscular Hemoglobin 29.9, Mean Corpuscular Hemoglobin Concent 33.6, Red Cell Distribution Width 14.8H, Platelet Count 105L, Monocytes # (Auto) , Nucleated Red Blood Cells % (auto) 0.0, Neutrophils 72, Band Neutrophils 4, Lymphocytes (Manual) 17, Monocytes (Manual) 6, Eosinophils (Manual) 1, Platelet Estimate DECREASED, Anion Gap 7L, Glomerular Filtration Rate > 60.0, Blood Urea Nitrogen 23H, Creatinine 0.57, Sodium Level 137, Potassium Level 4.5, Chloride Level 103, Carbon Dioxide Level 27, Calcium Level 8.5L, Total Creatine Kinase 167, Creatine Kinase MB 1.3, Creatine Kinase MB Relative Index 0.78, Troponin I < 0.02, OE-Lnc-C-Type Natriuretic Peptide 1294H 02/23/19 11:11: Lactic Acid Level 0.8 CBC/BMP Laboratory Tests 02/23/19 10:15 Red Blood Count 3.98 L, Mean Corpuscular Volume 88.9, Mean Corpuscular Hem oglobin 29.9, Mean Corpuscular Hemoglobin Concent 33.6, Red Cell Distribution Width 14.8 H, Monocytes # (Auto) , Calcium Level 8.5 L, Total Creatine Kinase 167 Microbiology Microbiology 02/23/19 Blood Culture, Received Pending 02/23/19 Blood Culture, Received Pending RAD Interpretation STUDY: CXR (left-sided infiltrate with left pleural effusion) Rad Actions: Report Reviewed, Discussed with the pt Assessment/Plan 1. Community-acquired pneumonia--the patient does not have fever or hypotension. She does have an acute oxygen requirement of 2 L/m to maintain sats of 92%. She does not have leukocytosis. Lactic acid is normal. Patient is to be placed on empiric antibiotics in the form of ceftriaxone and azithromycin. She'll received nebulization treatments. She does not have active wheezing. She does not require steroids. Blood cultures have been obtained and therapies can be adjusted depending upon results. The patient is not producing any sputum. 2. Essential hypertension--The patient will restart her usual blood pressure medicines in the form of candesartan, Coreg and hydralazine. 3. Bipolar/Anxiety Disorder--She will continue with her divalproex, Risperdal and benztropine for her underlying mood disorders. 4. Coronary artery disease--the patient will continue her other usual medications to manage her hypertension, dyslipidemia and chronic systolic congestive heart failure for which she is not having acute exacerbation. She is also receiving DVT prophylaxis with Lovenox. The patient is appropriately placed inpatient status as we anticipated length of stay will be greater than 2 midnights. Plan / VTE VTE Prophylaxis Ordered?: Yes Plan Diet: Continue Current Activity: Encourage Ambulation Therapy: PT, OT Medications: Start Antibiotics Diagnostics: Repeat Labs in AM Anticipated Discharge: Home With Services ALPHONSO MONTOYA MD Feb 23, 2019 21:19
[2019-02-24] MEDS: IPRATROPIUM 0.5MG/ALBUTEROL 2.5MG INH SOL UD 3ML (DUONEB)(J7620) INH SCH ×7 (00:11→23:23)
[2019-02-24] MEDS: ACETAMINOPHEN TAB 650MG DOSE (2X325MG) PO PRN (04:11)
[2019-02-24 06:37] LABS: HEMATOCRIT 31.8 % (36.0-47.0); HEMOGLOBIN 10.9 g/dl (12.0-15.5); MEAN CORPUSCULAR HEMOGLOBIN 30.2 pg (27.0-33.0); MEAN CORPUSCULAR HGB CONC 34.3 g/dl (32.0-36.5); MEAN CORPUSCULAR VOLUME 88.1 fl (80.0-96.0); PLATELET COUNT, AUTOMATED 106 10^3/uL (150-450); RED BLOOD COUNT 3.61 10^6/uL (4.00-5.40); WHITE BLOOD COUNT 6.3 10^3/uL (4.0-10.0)
[2019-02-24 06:52] LABS: BLOOD UREA NITROGEN 23 MG/DL (7-18); CALCIUM LEVEL 8.1 MG/DL (8.8-10.2); CARBON DIOXIDE LEVEL 30 MEQ/L (21-32); CHLORIDE LEVEL 103 MEQ/L (98-107); CREATININE FOR GFR 0.56 MG/DL (0.55-1.30); GLOMERULAR FILTRATION RATE > 60.0 (>39); GLUCOSE, FASTING 78 MG/DL (70-100); POTASSIUM SERUM 4.2 MEQ/L (3.5-5.1); SODIUM LEVEL 137 MEQ/L (136-145)
--- NOTE | 2019-02-24 09:24 | IPNPDOC ---
Subjective Date Seen The patient was seen on 02/24/19. Subjective Chief Complaint/HPI Less chest heaviness and less dyspnea. Cough looser. Constitutional: Denies: Chills, Fever Pulmonary: Reports: Dyspnea, Cough Cardiovascular: Denies: Chest Pain, Palpitations Gastrointestinal: Denies: Nausea, Vomiting, Abdominal Pain, Diarrhea, Constipation Objective Physical Examination General Exam: Positive: Alert, No Acute Distress, Other (ill-appearing) Eye Exam: Positive: Conjunctiva & lids normal, Other Eye Symptoms (scleral injection) ENT Exam: Positive: Mucous membr. moist/pink, Nares Patent Neck Exam: Positive: Supple Chest Exam: Positive: Normal air movement, Rhonchi (greater on the left than on the right), Wheezing Heart Exam: Positive: Rate Normal, Regular Rhythm, Normal S1, Normal S2; Negative: Murmurs, Rubs Abdomen Exam: Positive: Normal bowel sounds, Soft; Negative: Tenderness, Hepatospenomegaly Extremity Exam: Negative: Edema Skin Exam: Positive: Nl turgor and temperature Psych Exam: Positive: Mental status NL, Oriented x 3, Other Assessment /Plan Problems (1) CAP (community acquired pneumonia) Status: Acute Response to Treatment: Improving Problem Text: cont Rocephin/Zithromax, Oxygen and Nebulized bronchodilators B/C pending (2) CHF (congestive heart failure) Status: Chronic Response to Treatment: Stable Problem Text: Diuretics and ARB on hodl currently Normally on Candesartan 32 mg daily and Furosemide 40 mg daily as well as Hydralazine 50 TID (3) CAD (coronary artery disease) Status: Chronic Response to Treatment: Stable (4) Bipolar 1 disorder Status: Chronic Response to Treatment: Stable Problem Text: Cont usual meds (5) Anxiety Status: Chronic Response to Treatment: Stable Plan/VTE VTE Prophylaxis Ordered?: Yes (Lovenox) Plan Diet: Continue Current Activity: Encourage Ambulation Therapy: PT, OT Medications: Start Antibiotics Diagnostics: Repeat Labs in AM Anticipated Discharge: Home With Services Disposition Get PT/OT VS, I&O, 24H, [place] Vital Signs/I&O Vital Signs Date Time Temp Pulse Resp B/P (MAP) Pulse Ox O2 Delivery O2 Flow Rate FiO2 02/24/19 07:47 98.9 66 17 109/53 (71) 97 Room Air 02/24/19 04:01 2.0 I&O- Last 24 Hours up to 6 AM 02/24/19 06:00 Intake Total 305 ml Output Total 200 ml Balance 105 ml Laboratory Data 24H LABS Laboratory Tests 2 02/23/19 10:15: White Blood Count 8.1, Red Blood Count 3.98L, Hemoglobin 11.9L, Hematocrit 35.4L, Mean Corpuscular Volume 88.9, Mean Corpuscular Hemoglobin 29.9, Mean Corpuscular Hemoglobin Concent 33.6, Red Cell Distribution Width 14.8H, Platelet Count 105L, Monocytes # (Auto) , Nucleated Red Blood Cells % (auto) 0.0, Neutrophils 72, Band Neutrophils 4, Lymphocytes (Manual) 17, Monocytes (Manual) 6, Eosinophils (Manual) 1, Platelet Estimate DECREASED, Anion Gap 7L, Glomerular Filtration Rate > 60.0, Blood Urea Nitrogen 23H, Creatinine 0.57, Sodium Level 137, Potassium Level 4.5, Chloride Level 103, Carbon Dioxide Level 27, Calcium Level 8.5L, Total Creatine Kinase 167, Creatine Kinase MB 1.3, Creatine Kinase MB Relative Index 0.78, Troponin I < 0.02, WZ-[id number]-Type Natriuretic Peptide 1294H 02/23/19 11:11: Lactic Acid Level 0.8 02/24/19 06:08: Nucleated Red Blood Cells % (auto) 0.0, Anion Gap 4L, Glomerular Filtration Rate > 60.0, Blood Urea Nitrogen 23H, Creatinine 0.56, Sodium Level 137, Potassium Level 4.2, Chloride Level 103, Carbon Dioxide Level 30, Calcium Level 8.1L CBC/BMP Laboratory Tests 02/23/19 10:15 Red Blood Count 3.98 L, Mean Corpuscular Volume 88.9, Mean Corpuscular Hemoglobin 29.9, Mean Corpuscular Hemoglobin Concent 33.6, Red Cell Distribution Width 14.8 H, Monocytes # (Auto) , Calcium Level 8.5 L, Total Creatine Kinase 167 02/24/19 06:08 Red Blood Count 3.61 L, Mean Corpuscular Volume 88.1, Mean Corpuscular Hemoglobin 30.2, Mean Corpuscular Hemoglobin Concent 34.3, Red Cell Distribution Width 14.6 H, Calcium Level 8.1 L Microbiology Microbiology 02/23/19 Blood Culture, Received Pending 02/23/19 Blood Culture, Received Pending WETTERHAHN,KARLA M PA-C Feb 24, 2019 09:24
[2019-02-24] MEDS ORDERED: PILL CUTTER 1 EACH XX PRN (10:00)
[2019-02-24] MEDS: CARVedilol 3.125 MG TAB PO SCH ×2 (10:08→20:21)
[2019-02-24] MEDS: ASPIRIN 81 MG ENTERIC TAB PO SCH (10:19)
[2019-02-24] MEDS: ENOXAPARIN 40 MG/0.4 ML SYRINGE (J1650) SC SCH (10:19)
[2019-02-24] MEDS: cefTRIAXone SOD 1 GM in D5W MINI-BAG PLUS 50 ML IV SCH (10:20)
[2019-02-24] MEDS: FLUTICASONE PROP 0.05% NASAL SPRAY 16 GM (FLONASE) NARES SCH (10:20)
[2019-02-24 11:13] VITALS: BP 150/60
[2019-02-24 14:00] VITALS: BP 155/62
[2019-02-24] MEDS: AZITHROMYCIN INJ 500 MG, VIAL MATE ADAPTER 1 EACH in D5W 250 ML IV SCH (14:10)
[2019-02-24] MEDS: guaiFENesin ER 600 MG TAB PO PRN (17:49)
[2019-02-24] MEDS: LACTOBACILLUS ACIDOPHILUS CAP (BACID) PO SCH (17:49)
[2019-02-24 18:00] VITALS: BP 118/56
[2019-02-24] MEDS: BENZTROPINE 0.5 MG TAB PO SCH (20:21)
[2019-02-24] MEDS: SIMVASTATIN 20 MG TAB PO SCH (20:21)
[2019-02-24] MEDS: DIVALPROEX 500 MG TAB PO SCH (20:21)
[2019-02-24] MEDS: risperiDONE 0.5 MG TAB PO SCH (20:21)
[2019-02-24 22:00] VITALS: BP 144/57
[2019-02-25 02:00] VITALS: BP 134/55
[2019-02-25] MEDS: IPRATROPIUM 0.5MG/ALBUTEROL 2.5MG INH SOL UD 3ML (DUONEB)(J7620) INH SCH ×6 (05:54→23:56)
[2019-02-25 06:00] VITALS: BP 135/55
[2019-02-25 06:55] LABS: BLOOD UREA NITROGEN 16 MG/DL (7-18); CALCIUM LEVEL 8.2 MG/DL (8.8-10.2); CARBON DIOXIDE LEVEL 30 MEQ/L (21-32); CHLORIDE LEVEL 102 MEQ/L (98-107); CREATININE FOR GFR 0.48 MG/DL (0.55-1.30); GLOMERULAR FILTRATION RATE > 60.0 (>39); GLUCOSE, FASTING 83 MG/DL (70-100); POTASSIUM SERUM 3.9 MEQ/L (3.5-5.1); SODIUM LEVEL 137 MEQ/L (136-145)
[2019-02-25] MEDS: LACTOBACILLUS ACIDOPHILUS CAP (BACID) PO SCH ×3 (08:13→17:27)
[2019-02-25] MEDS: ASPIRIN 81 MG ENTERIC TAB PO SCH (08:13)
[2019-02-25] MEDS: CARVedilol 3.125 MG TAB PO SCH ×2 (08:16→20:42)
[2019-02-25] MEDS: ENOXAPARIN 40 MG/0.4 ML SYRINGE (J1650) SC SCH (08:16)
[2019-02-25] MEDS: FLUTICASONE PROP 0.05% NASAL SPRAY 16 GM (FLONASE) NARES SCH (08:40)
[2019-02-25 09:00] VITALS: BP 127/59
[2019-02-25 10:00] VITALS: BP 141/62
--- NOTE | 2019-02-25 10:16 | IPNPDOC ---
Subjective Date Seen The patient was seen on 02/25/19. Subjective Chief Complaint/HPI Raising thick sputum - still feels SOB at times Constitutional: Denies: Chills, Fever Pulmonary: Reports: Dyspnea, Cough Cardiovascular: Denies: Chest Pain Gastrointestinal: Denies: Nausea, Vomiting, Abdominal Pain, Diarrhea, Constipation Objective Physical Examination General Exam: Positive: Alert, No Acute Distress, Other ENT Exam: Positive: Mucous membr. moist/pink Neck Exam: Positive: Supple Chest Exam: Positive: Normal air movement, Other (decreased BS left base. Right CTA) Heart Exam: Positive: Rate Normal, Regular Rhythm, Normal S1, Normal S2; Negative: Murmurs, Rubs Abdomen Exam: Positive: Normal bowel sounds, Soft; Negative: Tenderness, Hepatospenomegaly Extremity Exam: Negative: Edema Skin Exam: Positive: Nl turgor and temperature Psych Exam: Positive: Mental status NL, Oriented x 3, Other Assessment /Plan Problems (1) CAP (community acquired pneumonia) Status: Acute Response to Treatment: Improving Problem Text: 02/25 - cont Rocephin/Zithromax, Oxygen and Nebulized bronchodilators B/C negative (2) CHF (congestive heart failure) Status: Chronic Response to Treatment: Stable Problem Text: 02/25 - remains compensated currently Diuretics and ARB on hold currently Normally on Candesartan 32 mg daily and Furosemide 40 mg daily as well as Hydralazine 50 TID (3) CAD (coronary artery disease) Status: Chronic Response to Treatment: Stable (4) Bipolar 1 disorder Status: Chronic Response to Treatment: Stable Problem Text: Cont usual meds (5) Anxiety Status: Chronic Response to Treatment: Stable Plan/VTE VTE Prophylaxis Ordered?: Yes (Lovenox) Plan Diet: Continue Current Activity: Encourage Ambulation Therapy: PT, OT Medications: Start Antibiotics Diagnostics: Repeat Labs in AM Anticipated Discharge: Home With Services Disposition Continue PT OT VS, I&O, 24H, [place] Vital Signs/I&O Vital Signs Date Time Temp Pulse Resp B/P (MAP) Pulse Ox O2 Delivery O2 Flow Rate FiO2 02/25/19 10:00 97.3 64 28 141/62 (88) 94 2.0 02/24/19 11:04 Nasal Cannula I&O- Last 24 Hours up to 6 AM 02/25/19 06:00 Intake Total 425 ml Output Total 520 ml Balance -95 ml Laboratory Data 24H LABS Laboratory Tests 2 02/24/19 11:55: 02/25/19 05:48: Anion Gap 5L, Glomerular Filtration Rate > 60.0, Blood Urea Nitrogen 16, Cre atinine 0.48L, Sodium Level 137, Potassium Level 3.9, Chloride Level 102, Carbon Dioxide Level 30, Calcium Level 8.2L CBC/BMP Laboratory Tests 02/25/19 05:48 Calcium Level 8.2 L Microbiology Microbiology 02/23/19 Blood Culture - Preliminary, Resulted No growth after 24 hours . All specim... 02/23/19 Blood Culture - Preliminary, Resulted No growth after 24 hours . All specim... KARLA DONAHUE PA-C Feb 25, 2019 10:16
[2019-02-25] MEDS: cefTRIAXone SOD 1 GM in D5W MINI-BAG PLUS 50 ML IV SCH (11:07)
[2019-02-25] MEDS: AZITHROMYCIN INJ 500 MG, VIAL MATE ADAPTER 1 EACH in D5W 250 ML IV SCH (13:02)
[2019-02-25 14:00] VITALS: BP_SYST 152; BP_SYST 72; BP_DIAS 72
[2019-02-25] MEDS: DIVALPROEX 500 MG TAB PO SCH (20:41)
[2019-02-25] MEDS: BENZTROPINE 0.5 MG TAB PO SCH (20:41)
[2019-02-25] MEDS: SIMVASTATIN 20 MG TAB PO SCH (20:41)
[2019-02-25] MEDS: risperiDONE 0.5 MG TAB PO SCH (20:42)
[2019-02-25 22:00] VITALS: BP 159/72
[2019-02-25] MEDS: guaiFENesin ER 600 MG TAB PO PRN (23:14)
[2019-02-26 02:00] VITALS: BP 120/48
[2019-02-26] MEDS: IPRATROPIUM 0.5MG/ALBUTEROL 2.5MG INH SOL UD 3ML (DUONEB)(J7620) INH SCH ×6 (04:00→23:58)
[2019-02-26 06:00] VITALS: BP 124/64
[2019-02-26 06:15] LABS: HEMOGLOBIN 10.4 g/dl (12.0-15.5); MEAN CORPUSCULAR HEMOGLOBIN 28.8 pg (27.0-33.0); MEAN CORPUSCULAR HGB CONC 33.5 g/dl (32.0-36.5); MEAN CORPUSCULAR VOLUME 85.9 fl (80.0-96.0); PLATELET COUNT, AUTOMATED 154 10^3/uL (150-450); RED BLOOD COUNT 3.61 10^6/uL (4.00-5.40); WHITE BLOOD COUNT 5.5 10^3/uL (4.0-10.0)
[2019-02-26 06:35] LABS: BLOOD UREA NITROGEN 13 MG/DL (7-18); CARBON DIOXIDE LEVEL 29 MEQ/L (21-32); CHLORIDE LEVEL 102 MEQ/L (98-107); CREATININE FOR GFR 0.38 MG/DL (0.55-1.30); GLOMERULAR FILTRATION RATE > 60.0 (>39); GLUCOSE, FASTING 83 MG/DL (70-100); SODIUM LEVEL 137 MEQ/L (136-145)
[2019-02-26] MEDS: LACTOBACILLUS ACIDOPHILUS CAP (BACID) PO SCH ×3 (07:54→17:22)
[2019-02-26] MEDS: ENOXAPARIN 40 MG/0.4 ML SYRINGE (J1650) SC SCH (07:55)
[2019-02-26] MEDS: CARVedilol 3.125 MG TAB PO SCH ×2 (07:55→20:53)
[2019-02-26] MEDS: ASPIRIN 81 MG ENTERIC TAB PO SCH (07:55)
[2019-02-26] MEDS: FLUTICASONE PROP 0.05% NASAL SPRAY 16 GM (FLONASE) NARES SCH (07:55)
--- NOTE | 2019-02-26 10:02 | IPNPDOC ---
Subjective Date Seen The patient was seen on 02/26/19. Subjective Chief Complaint/HPI Feels better - Les SOB. Still coughing but improved some. Strength improving as well. Constitutional: Denies: Chills, Fever Pulmonary: Reports: Cough; Denies: Dyspnea Cardiovascular: Denies: Chest Pain, Palpitations Gastrointestinal: Denies: Nausea, Vomiting, Abdominal Pain, Diarrhea, Constipation Objective Physical Examination General Exam: Positive: Alert, No Acute Distress, Other ENT Exam: Positive: Mucous membr. moist/pink Neck Exam: Positive: Supple Chest Exam: Positive: Clear to auscultation, Normal air movement; Negative: Rales, Rhonchi, Wheezing Heart Exam: Positive: Rate Normal, Regular Rhythm, Normal S1, Normal S2; Negative: Murmurs, Rubs Abdomen Exam: Positive: Normal bowel sounds, Soft; Negative: Tenderness, Hepatospenomegaly Extremity Exam: Negative: Edema Skin Exam: Positive: Nl turgor and temperature Psych Exam: Positive: Mental status NL, Oriented x 3, Other Assessment /Plan Problems (1) CAP (community acquired pneumonia) Status: Acute Response to Treatment: Improving Problem Text: 02/26 - Switch to po abx. Wean O2 02/25 - cont Rocephin/Zithromax, Oxygen and Nebulized bronchodilators B/C negative (2) CHF (congestive heart failure) Status: Chronic Response to Treatment: Stable Problem Text: 02/26 - restart Lasix. ARB and Hydralazine remain on hold for now. BP stable 02/25 - remains compensated currently Diuretics and ARB on hold currently Normally on Candesartan 32 mg daily and Furosemide 40 mg daily as well as Hydralazine 50 TID (3) CAD (coronary artery disease) Status: Chronic Response to Treatment: Stable (4) Bipolar 1 disorder Status: Chronic Response to Treatment: Stable Problem Text: Cont usual meds (5) Anxiety Status: Chronic Response to Treatment: Stable Plan/VTE VTE Prophylaxis Ordered?: Yes (Lovenox) Plan Diet: Continue Current Activity: Encourage Ambulation Therapy: PT, OT Medications: Start Antibiotics Diagnostics: Repeat Labs in AM Anticipated Discharge: Home With Services Disposition ARU screen ordered VS, I&O, 24H, [place] Vital Signs/I&O Vital Signs Date Time Temp Pulse Resp B/P (MAP) Pulse Ox O2 Delivery O2 Flow Rate FiO2 02/26/19 09:33 2.0 7/18/19 07:55 64 124/64 02/26/19 06:00 97.4 18 93 02/24/19 11:04 Nasal Cannula I&O- Last 24 Hours up to 6 AM 02/26/19 06:00 Intake Total 659 ml Output Total 2480 ml Balance -1821 ml Laboratory Data 24H LABS Laboratory Tests 2 02/26/19 05:51: Nucleated Red Blood Cells % (auto) 0.0, Anion Gap 6L, Glomerular Filtration Rate > 60.0, Blood Urea Nitrogen 13, Creatinine 0.38L, Sodium Level 137, Potassium Level 4.0, Chloride Level 102, Carbon Dioxide Level 29, Calcium Level 8.0L CBC/BMP Laboratory Tests 02/26/19 05:51 Red Blood Count 3.61 L, Mean Corpuscular Volume 85.9, Mean Corpuscular Hemoglobin 28.8, Mean Corpuscular Hemoglobin Concent 33.5, Red Cell Distribution Width 14.4, Calcium Level 8.0 L Microbiology Microbiology 02/23/19 Blood Culture - Preliminary, Resulted No Growth after 48 hours. All Specime... 02/23/19 Blood Culture - Preliminary, Resulted No Growth after 48 hours. All Specime... KARLA DONAHUE PA-C Feb 26, 2019 10:02
[2019-02-26] MEDS: FUROSEMIDE 40 MG TAB PO SCH (10:03)
[2019-02-26] MEDS: AZITHROMYCIN 250 MG TAB PO SCH (10:03)
[2019-02-26] MEDS: POTASSIUM CHLORIDE 10 MEQ SR TABLET PO SCH (10:03)
[2019-02-26] MEDS: CEFUROXIME 500 MG TAB PO SCH ×2 (10:50→20:48)
[2019-02-26 14:00] VITALS: BP 178/79
[2019-02-26 16:00] VITALS: BP 150/70
[2019-02-26] MEDS: guaiFENesin ER 600 MG TAB PO PRN (17:22)
[2019-02-26] MEDS: BENZTROPINE 0.5 MG TAB PO SCH (20:53)
[2019-02-26] MEDS: risperiDONE 0.5 MG TAB PO SCH (20:54)
[2019-02-26] MEDS: DIVALPROEX 500 MG TAB PO SCH (20:54)
[2019-02-26] MEDS: SIMVASTATIN 20 MG TAB PO SCH (20:54)
[2019-02-26 22:00] VITALS: BP 130/80
[2019-02-27 00:07] LABS: BODY FLUID CULTURE Not Indicated (.); LEGIONELLA ANTIGEN URINE Negative (Negative); ORGANISM ID Not indicated. (.); SPECIMEN SOURCE Urine (.); URINE STREP PNEUMONIAE ANTIGEN Negative (Negative)
[2019-02-27 02:00] VITALS: BP 147/64
[2019-02-27] MEDS: IPRATROPIUM 0.5MG/ALBUTEROL 2.5MG INH SOL UD 3ML (DUONEB)(J7620) INH SCH ×5 (04:24→19:34)
[2019-02-27 06:00] VITALS: BP 130/75
[2019-02-27 07:56] LABS: BLOOD UREA NITROGEN 11 MG/DL (7-18); CALCIUM LEVEL 8.2 MG/DL (8.8-10.2); CARBON DIOXIDE LEVEL 29 MEQ/L (21-32); CHLORIDE LEVEL 106 MEQ/L (98-107); CREATININE FOR GFR 0.43 MG/DL (0.55-1.30); GLOMERULAR FILTRATION RATE > 60.0 (>39); GLUCOSE, FASTING 74 MG/DL (70-100); POTASSIUM SERUM 4.2 MEQ/L (3.5-5.1); SODIUM LEVEL 140 MEQ/L (136-145)
[2019-02-27] MEDS: POTASSIUM CHLORIDE 10 MEQ SR TABLET PO SCH (08:47)
[2019-02-27] MEDS: ASPIRIN 81 MG ENTERIC TAB PO SCH (08:47)
[2019-02-27] MEDS: CEFUROXIME 500 MG TAB PO SCH ×2 (08:47→20:40)
[2019-02-27] MEDS: AZITHROMYCIN 250 MG TAB PO SCH (08:47)
[2019-02-27] MEDS: FUROSEMIDE 40 MG TAB PO SCH (08:48)
[2019-02-27] MEDS: FLUTICASONE PROP 0.05% NASAL SPRAY 16 GM (FLONASE) NARES SCH (08:48)
[2019-02-27] MEDS: LACTOBACILLUS ACIDOPHILUS CAP (BACID) PO SCH ×3 (08:48→18:24)
[2019-02-27] MEDS: ENOXAPARIN 40 MG/0.4 ML SYRINGE (J1650) SC SCH (08:48)
[2019-02-27] MEDS: CARVedilol 3.125 MG TAB PO SCH ×2 (08:53→20:41)
--- NOTE | 2019-02-27 09:49 | IPNPDOC ---
Subjective Date Seen The patient was seen on 02/27/19. Subjective Chief Complaint/HPI Still coughing. Still requiring oxygen. Less dyspnea Constitutional: Denies: Chills, Fever Pulmonary: Reports: Dyspnea, Cough Cardiovascular: Denies: Chest Pain, Palpitations Gastrointestinal: Denies: Nausea, Vomiting, Abdominal Pain, Diarrhea, Constipation Objective Physical Examination General Exam: Positive: Alert, No Acute Distress, Other ENT Exam: Positive: Mucous membr. moist/pink Neck Exam: Positive: Supple Chest Exam: Positive: Clear to auscultation, Normal air movement; Negative: Rales, Rhonchi, Wheezing Heart Exam: Positive: Rate Normal, Regular Rhythm, Normal S1, Normal S2; Negative: Murmurs, Rubs Abdomen Exam: Positive: Normal bowel sounds, Soft; Negative: Tenderness, Hepatospenomegaly Extremity Exam: Negative: Edema Skin Exam: Positive: Nl turgor and temperature Psych Exam: Positive: Mental status NL, Oriented x 3, Other Assessment /Plan Problems (1) CAP (community acquired pneumonia) Status: Acute Response to Treatment: Improving Problem Text: 02/27 - On po abx D#4 Zithromax and now Ceftincont to wean oxygne as tolerated. Encourage IS Cont nebs 02/26 - Switch to po abx. Wean O2 02/25 - cont Rocephin/Zithromax, Oxygen and Nebulized bronchodilators B/C negative (2) CHF (congestive heart failure) Status: Chronic Response to Treatment: Stable Problem Text: 02/27 - compensated on ususal HD Lasix. ARB and Hydralazine remain on hold for now. BP stable 02/26 - restart Lasix. 02/25 - remains compensated currently Diuretics and ARB on hold currently Normally on Candesartan 32 mg daily and Furosemide 40 mg daily as well as Hydralazine 50 TID (3) CAD (coronary artery disease) Status: Chronic Response to Treatment: Stable (4) Bipolar 1 disorder Status: Chronic Response to Treatment: Stable Problem Text: Cont usual meds (5) Anxiety Status: Chronic Response to Treatment: Stable Plan/VTE VTE Prophylaxis Ordered?: Yes (Lovenox) Plan Diet: Continue Current Activity: Encourage Ambulation Therapy: PT, OT Medications: Start Antibiotics Diagnostics: Repeat Labs in AM Anticipated Discharge: Home With Services Disposition Not safe per PT. ARU screen underway but no ARU doctor available with weekend. May be able to go to ARU Saturday vs home if safe by then VS, I&O, 24H, Fish[place] Vital Signs/I&O Vital Signs Date Time Temp Pulse Resp B/P (MAP) Pulse Ox O2 Delivery O2 Flow Rate FiO2 02/27/19 08:53 63 02/27/19 06:00 97.1 18 130/75 (93) 94 2.0 02/24/19 11:04 Nasal Cannula I&O- Last 24 Hours up to 6 AM 02/27/19 05:59 Intake Total 810 ml Output Total 2100 ml Balance -1290 ml Laboratory Data 24H LABS Laboratory Tests 2 02/27/19 07:14: Anion Gap 5L, Glomerular Filtration Rate > 60.0, Blood Urea Nitrogen 11, Creatinine 0.43L, Sodium Level 140, Potassium Level 4.2, Chloride Level 106, Carbon Dioxide Level 29, Calcium Level 8.2L CBC/BMP Laboratory Tests 02/27/19 07:14 Calcium Level 8.2 L Microbiology Microbiology 02/23/19 Blood Culture - Preliminary, Resulted No Growth after 72 hours. All specime... 02/23/19 Blood Culture - Preliminary, Resulted No Growth after 72 hours. All specime... KARLA DONAHUE PA-C Feb 27, 2019 09:49
[2019-02-27 10:00] VITALS: BP 138/74
[2019-02-27 14:00] VITALS: BP 142/62
[2019-02-27 18:00] VITALS: BP 153/67
[2019-02-27] MEDS: SIMVASTATIN 20 MG TAB PO SCH (20:40)
[2019-02-27] MEDS: risperiDONE 0.5 MG TAB PO SCH (20:40)
[2019-02-27] MEDS: DIVALPROEX 500 MG TAB PO SCH (20:40)
[2019-02-27] MEDS: BENZTROPINE 0.5 MG TAB PO SCH (20:41)
[2019-02-27 22:00] VITALS: BP 162/74
[2019-02-28] MEDS: IPRATROPIUM 0.5MG/ALBUTEROL 2.5MG INH SOL UD 3ML (DUONEB)(J7620) INH SCH ×6 (01:06→20:00)
[2019-02-28 04:00] VITALS: BP 156/88
[2019-02-28 06:00] VITALS: BP 150/62
[2019-02-28] MEDS: ASPIRIN 81 MG ENTERIC TAB PO SCH (08:05)
[2019-02-28] MEDS: LACTOBACILLUS ACIDOPHILUS CAP (BACID) PO SCH ×3 (08:05→17:27)
[2019-02-28] MEDS: POTASSIUM CHLORIDE 10 MEQ SR TABLET PO SCH (08:05)
[2019-02-28] MEDS: CEFUROXIME 500 MG TAB PO SCH ×2 (08:05→21:47)
[2019-02-28] MEDS: FUROSEMIDE 40 MG TAB PO SCH (08:06)
[2019-02-28] MEDS: FLUTICASONE PROP 0.05% NASAL SPRAY 16 GM (FLONASE) NARES SCH (08:06)
[2019-02-28] MEDS: ENOXAPARIN 40 MG/0.4 ML SYRINGE (J1650) SC SCH (08:06)
[2019-02-28] MEDS: CARVedilol 3.125 MG TAB PO SCH ×2 (08:10→21:48)
[2019-02-28 10:00] VITALS: BP 148/62
[2019-02-28 14:00] VITALS: BP 162/68
--- NOTE | 2019-02-28 14:10 | IPN ---
DATE: 02/28/2019 Irina [facility]. She has developed diarrhea. She is quite worried about C. difficile colitis which contributed to her 's a few weeks ago. She is being treated for community acquired pneumonia with Ceftin and azithromycin. She has a history of congestive heart failure (CHF), seems better compensated on her current dose of Lasix, thought her candesartan and hydralazine are still on hold. PHYSICAL EXAMINATION: Vital signs: 148/62, afebrile, oxygen saturation 90% on 1 liter. General appearance: Frail, elderly, resting comfortably. Lungs: Scattered rhonchi. Heart: Regular rhythm. Abdomen: Soft, nontender, nondistended. No masses. No peripheral edema. Labs: White count 5.5, hemoglobin 10.4, platelets 154, sodium 148, potassium 4.2, BUN 11, creatinine 0.3, glucose 74. IMPRESSION: 1. Diarrhea, C. difficile pending. 2. Pneumonia. Continue cefuroxime. She has completed five days of azithromycin. Probiotic has been ordered. 3. Congestive heart failure (CHF). Compensated on current dose of furosemide. Will restart her candesartan. Keep an eye on her potassium level restarting the ARB medication. 4. Bipolar disorder. Continue current dose of Risperdal, Cogentin and Depakote. 5. Hyperlipidemia. Continue atorvastatin.
[2019-02-28 18:00] VITALS: BP 166/77
[2019-02-28] MEDS: CANDESARTAN 4MG TABLET PO SCH (21:46)
[2019-02-28] MEDS: SIMVASTATIN 20 MG TAB PO SCH (21:46)
[2019-02-28] MEDS: DIVALPROEX 500 MG TAB PO SCH (21:47)
[2019-02-28] MEDS: BENZTROPINE 0.5 MG TAB PO SCH (21:47)
[2019-02-28] MEDS: risperiDONE 0.5 MG TAB PO SCH (21:48)
[2019-02-28 22:00] VITALS: BP 158/62
[2019-03-01 02:00] VITALS: BP 160/70
[2019-03-01] MEDS: IPRATROPIUM 0.5MG/ALBUTEROL 2.5MG INH SOL UD 3ML (DUONEB)(J7620) INH SCH ×7 (03:32→23:34)
[2019-03-01 06:00] VITALS: BP 140/62
[2019-03-01 06:45] LABS: HEMATOCRIT 32.6 % (36.0-47.0); HEMOGLOBIN 10.9 g/dl (12.0-15.5); MEAN CORPUSCULAR HEMOGLOBIN 28.8 pg (27.0-33.0); MEAN CORPUSCULAR HGB CONC 33.4 g/dl (32.0-36.5); PLATELET COUNT, AUTOMATED 234 10^3/uL (150-450); RED BLOOD COUNT 3.79 10^6/uL (4.00-5.40); WHITE BLOOD COUNT 4.9 10^3/uL (4.0-10.0)
[2019-03-01 07:14] LABS: BLOOD UREA NITROGEN 12 MG/DL (7-18); CALCIUM LEVEL 8.3 MG/DL (8.8-10.2); CARBON DIOXIDE LEVEL 30 MEQ/L (21-32); CHLORIDE LEVEL 105 MEQ/L (98-107); GLOMERULAR FILTRATION RATE > 60.0 (>39); GLUCOSE, FASTING 70 MG/DL (70-100); SODIUM LEVEL 139 MEQ/L (136-145)
[2019-03-01] MEDS: POTASSIUM CHLORIDE 10 MEQ SR TABLET PO SCH (07:58)
[2019-03-01] MEDS: FUROSEMIDE 40 MG TAB PO SCH (07:58)
[2019-03-01] MEDS: LACTOBACILLUS ACIDOPHILUS CAP (BACID) PO SCH ×3 (07:58→17:31)
[2019-03-01] MEDS: ASPIRIN 81 MG ENTERIC TAB PO SCH (07:58)
[2019-03-01] MEDS: CEFUROXIME 500 MG TAB PO SCH ×2 (07:58→21:56)
[2019-03-01] MEDS: ENOXAPARIN 40 MG/0.4 ML SYRINGE (J1650) SC SCH (07:59)
[2019-03-01] MEDS: LORATADINE 10 MG TAB PO SCH (07:59)
[2019-03-01] MEDS: CARVedilol 3.125 MG TAB PO SCH ×2 (08:00→21:58)
[2019-03-01] MEDS: FLUTICASONE PROP 0.05% NASAL SPRAY 16 GM (FLONASE) NARES SCH (08:00)
[2019-03-01 10:00] VITALS: BP 150/68
[2019-03-01 14:00] VITALS: BP 180/74
[2019-03-01] MEDS: **hydrALAZINE HCL** 25 MG TAB PO SCH ×2 (15:04→23:31)
[2019-03-01 18:00] VITALS: BP 146/53
[2019-03-01] MEDS: risperiDONE 0.5 MG TAB PO SCH (21:57)
[2019-03-01] MEDS: DIVALPROEX 500 MG TAB PO SCH (21:57)
[2019-03-01] MEDS: CANDESARTAN 4MG TABLET PO SCH (21:57)
[2019-03-01] MEDS: SIMVASTATIN 20 MG TAB PO SCH (21:57)
[2019-03-01] MEDS: BENZTROPINE 0.5 MG TAB PO SCH (21:57)
[2019-03-01 22:00] VITALS: BP 118/54
--- NOTE | 2019-03-01 23:47 | IPN ---
DATE: 03/01/2019 Her diarrhea has resolved. She did not have a sample sent out for Clostridium difficile. She is feeling better than she has since her admission. No shortness of breath. PHYSICAL EXAMINATION: 144/68, pulse 74. HEENT: Unremarkable. Lungs are clear. Heart: Regular rate and rhythm. Abdomen is soft, nontender. No peripheral edema. LABORATORY: Her electrolytes are unremarkable. Her white count is 4.9. IMPRESSION: 1. Community acquired pneumonia. She has finished Zithromax. She is on Ceftin for day #6 of what I would advised to be 7 days of antibiotic therapy. 2. Diarrhea. This has abated. We did not get Clostridium difficile samples yet. 3. General deconditioning. She would like to be considered for rehabilitation, either ARU or short term rehabilitation. 4. Congestive heart failure (CHF) compensated. Restart her candesartan. Watch her potassium level on this. 5. Bipolar disorder. Continue Risperdal, Cogentin and Depakote
[2019-03-02 02:00] VITALS: BP 146/58
[2019-03-02] MEDS: IPRATROPIUM 0.5MG/ALBUTEROL 2.5MG INH SOL UD 3ML (DUONEB)(J7620) INH SCH ×5 (02:56→21:39)
[2019-03-02 06:00] VITALS: BP 162/70
[2019-03-02] MEDS: **hydrALAZINE HCL** 25 MG TAB PO SCH ×3 (06:37→23:53)
[2019-03-02 07:09] LABS: BLOOD UREA NITROGEN 11 MG/DL (7-18); CALCIUM LEVEL 8.1 MG/DL (8.8-10.2); CARBON DIOXIDE LEVEL 30 MEQ/L (21-32); CHLORIDE LEVEL 105 MEQ/L (98-107); CREATININE FOR GFR 0.43 MG/DL (0.55-1.30); GLOMERULAR FILTRATION RATE > 60.0 (>39); GLUCOSE, FASTING 75 MG/DL (70-100); POTASSIUM SERUM 3.6 MEQ/L (3.5-5.1); SODIUM LEVEL 139 MEQ/L (136-145)
[2019-03-02] MEDS: LORATADINE 10 MG TAB PO SCH (08:02)
[2019-03-02] MEDS: LACTOBACILLUS ACIDOPHILUS CAP (BACID) PO SCH ×3 (08:02→17:32)
[2019-03-02] MEDS: POTASSIUM CHLORIDE 10 MEQ SR TABLET PO SCH (08:02)
[2019-03-02] MEDS: FUROSEMIDE 40 MG TAB PO SCH (08:07)
[2019-03-02] MEDS: ASPIRIN 81 MG ENTERIC TAB PO SCH (08:07)
[2019-03-02] MEDS: CARVedilol 3.125 MG TAB PO SCH ×2 (08:07→21:49)
[2019-03-02] MEDS: CEFUROXIME 500 MG TAB PO SCH ×2 (08:08→21:48)
[2019-03-02] MEDS: FLUTICASONE PROP 0.05% NASAL SPRAY 16 GM (FLONASE) NARES SCH (08:08)
[2019-03-02] MEDS: ENOXAPARIN 40 MG/0.4 ML SYRINGE (J1650) SC SCH (08:08)
[2019-03-02 09:22] VITALS: BP 126/61
[2019-03-02 10:00] VITALS: BP 142/50
--- NOTE | 2019-03-02 11:46 | IPNPDOC ---
Subjective Date Seen The patient was seen on 03/02/19. Subjective Chief Complaint/HPI pneumonia Events since last encounter feeling well. continues with weakness and is anticipating DC to rehab Constitutional: Denies: Chills, Fever, Night Sweats Skin: Denies: Rash, Lesions, Breakdown Pulmonary: Denies: Dyspnea, Cough Cardiovascular: Denies: Chest Pain, Palpitations, Orthopnea, Paroxysmal Noc. Dyspnea, Lt Headedness Gastrointestinal: Denies: Nausea, Vomiting, Abdominal Pain, Diarrhea, Constipation Objective Physical Examination General Exam: Positive: Alert, No Acute Distress, Other ENT Exam: Positive: Mucous membr. moist/pink Neck Exam: Positive: Supple Chest Exam: Positive: Clear to auscultation, Normal air movement; Negative: Rales, Rhonchi, Wheezing Heart Exam: Positive: Rate Normal, Regular Rhythm, Normal S1, Normal S2; Negative: Murmurs, Rubs Abdomen Exam: Positive: Normal bowel sounds, Soft; Negative: Tenderness, Hepatospenomegaly Extremity Exam: Negative: Edema Skin Exam: Positive: Nl turgor and temperature Psych Exam: Positive: Mental status NL, Oriented x 3, Other Assessment /Plan Problems (1) CAP (community acquired pneumonia) Status: Acute Response to Treatment: Improving Problem Text: 03/02/2019: Day #7 po abx. Oxygen weaned continue nebs 02/27 - On po abx D#4 Zithromax and now Ceftincont to wean oxygne as tolerated. Encourage IS Cont nebs 02/26 - Switch to po abx. Wean O2 02/25 - cont Rocephin/Zithromax, Oxygen and Nebulized bronchodilators B/C negative (2) CHF (congestive heart failure) Status: Chronic Response to Treatment: Stable Problem Text: 02/27 - compensated on ususal HD Lasix. ARB and Hydralazine remain on hold for now. BP stable 02/26 - restart Lasix. 02/25 - remains compensated currently Diuretics and ARB on hold currently Normally on Candesartan 32 mg daily and Furosemide 40 mg daily as well as Hydralazine 50 TID (3) CAD (coronary artery disease) Status: Chronic Response to Treatment: Stable (4) Bipolar 1 disorder Status: Chronic Response to Treatment: Stable Problem Text: Cont usual meds (5) Anxiety Status: Chronic Response to Treatment: Stable Plan/VTE VTE Prophylaxis Ordered?: Yes (Lovenox) Plan Diet: Continue Current Activity: Encourage Ambulation Therapy: PT, OT Medications: Start Antibiotics Diagnostics: Repeat Labs in AM Anticipated Discharge: Home With Services VS, I&O, 24H, [place]ia Vital Signs/I&O Vital Signs Date Time Temp Pulse Resp B/P (MAP) Pulse Ox O2 Delivery O2 Flow Rate FiO2 03/02/19 10:00 97.3 70 18 142/50 (80) 93 02/28/19 21:45 1.0 02/24/19 11:04 Nasal Cannula I&O- Last 24 Hours up to 6 AM 03/02/19 06:00 Intake Total 940 ml Balance 940 ml Laboratory Data 24H LABS Laboratory Tests 2 03/02/19 06:13: Anion Gap 4L, Glomerular Filtration Rate > 60.0, Blood Urea Nitrogen 11, Creatinine 0.43L, Sodium Level 139, Potassium Level 3.6, Chloride Level 105, Carbon Dioxide Level 30, Calcium Level 8.1L CBC/BMP Laboratory Tests 03/02/19 06:13 Calcium Level 8.1 L Microbiology Microbiology 02/23/19 Blood Culture - Final, Complete NO GROWTH AFTER 5 DAYS 02/23/19 Blood Culture - Final, Complete NO GROWTH AFTER 5 DAYS Kenisha Batista BUCCARO Mar 02, 2019 11:46
[2019-03-02 18:00] VITALS: BP 138/62
[2019-03-02] MEDS: BENZTROPINE 0.5 MG TAB PO SCH (21:48)
[2019-03-02] MEDS: CANDESARTAN 4MG TABLET PO SCH (21:48)
[2019-03-02] MEDS: DIVALPROEX 500 MG TAB PO SCH (21:49)
[2019-03-02] MEDS: risperiDONE 0.5 MG TAB PO SCH (21:49)
[2019-03-02] MEDS: SIMVASTATIN 20 MG TAB PO SCH (21:49)
[2019-03-02 22:00] VITALS: BP 139/71
[2019-03-03] VITALS (7 sets, daily range): BP systolic 122–146; BP diastolic 48–79
[2019-03-03] MEDS: IPRATROPIUM 0.5MG/ALBUTEROL 2.5MG INH SOL UD 3ML (DUONEB)(J7620) INH SCH ×7 (02:55→23:20)
[2019-03-03] MEDS: **hydrALAZINE HCL** 25 MG TAB PO SCH ×3 (06:01→23:19)
[2019-03-03 06:46] LABS: BLOOD UREA NITROGEN 10 MG/DL (7-18); CALCIUM LEVEL 8.2 MG/DL (8.8-10.2); CARBON DIOXIDE LEVEL 29 MEQ/L (21-32); CHLORIDE LEVEL 103 MEQ/L (98-107); CREATININE FOR GFR 0.41 MG/DL (0.55-1.30); GLOMERULAR FILTRATION RATE > 60.0 (>39); GLUCOSE, FASTING 74 MG/DL (70-100); POTASSIUM SERUM 3.9 MEQ/L (3.5-5.1); SODIUM LEVEL 136 MEQ/L (136-145)
[2019-03-03] MEDS: ENOXAPARIN 40 MG/0.4 ML SYRINGE (J1650) SC SCH (08:29)
[2019-03-03] MEDS: LACTOBACILLUS ACIDOPHILUS CAP (BACID) PO SCH ×3 (08:30→17:29)
[2019-03-03] MEDS: ASPIRIN 81 MG ENTERIC TAB PO SCH (08:30)
[2019-03-03] MEDS: FUROSEMIDE 40 MG TAB PO SCH (08:30)
[2019-03-03] MEDS: POTASSIUM CHLORIDE 10 MEQ SR TABLET PO SCH (08:30)
[2019-03-03] MEDS: LORATADINE 10 MG TAB PO SCH (08:30)
[2019-03-03] MEDS: CEFUROXIME 500 MG TAB PO SCH ×2 (08:32→21:17)
[2019-03-03] MEDS: FLUTICASONE PROP 0.05% NASAL SPRAY 16 GM (FLONASE) NARES SCH (08:36)
[2019-03-03] MEDS: CARVedilol 3.125 MG TAB PO SCH ×2 (08:36→21:18)
[2019-03-03] MEDS: risperiDONE 0.5 MG TAB PO SCH (21:17)
[2019-03-03] MEDS: BENZTROPINE 0.5 MG TAB PO SCH (21:18)
[2019-03-03] MEDS: SIMVASTATIN 20 MG TAB PO SCH (21:18)
[2019-03-03] MEDS: CANDESARTAN 4MG TABLET PO SCH (21:18)
[2019-03-03] MEDS: DIVALPROEX 500 MG TAB PO SCH (21:18)
[2019-03-04 02:00] VITALS: BP 137/71
[2019-03-04] MEDS: IPRATROPIUM 0.5MG/ALBUTEROL 2.5MG INH SOL UD 3ML (DUONEB)(J7620) INH SCH ×2 (03:17→07:49)
[2019-03-04 06:00] VITALS: BP 130/74
[2019-03-04] MEDS: **hydrALAZINE HCL** 25 MG TAB PO SCH (06:06)
[2019-03-04 06:09] LABS: HEMATOCRIT 35.2 % (36.0-47.0); HEMOGLOBIN 11.8 g/dl (12.0-15.5); MEAN CORPUSCULAR HEMOGLOBIN 29.4 pg (27.0-33.0); MEAN CORPUSCULAR HGB CONC 33.5 g/dl (32.0-36.5); MEAN CORPUSCULAR VOLUME 87.6 fl (80.0-96.0); PLATELET COUNT, AUTOMATED 230 10^3/uL (150-450); RED BLOOD COUNT 4.02 10^6/uL (4.00-5.40); WHITE BLOOD COUNT 4.3 10^3/uL (4.0-10.0)
[2019-03-04 06:41] LABS: BLOOD UREA NITROGEN 10 MG/DL (7-18); CALCIUM LEVEL 8.4 MG/DL (8.8-10.2); CARBON DIOXIDE LEVEL 29 MEQ/L (21-32); CHLORIDE LEVEL 102 MEQ/L (98-107); CREATININE FOR GFR 0.42 MG/DL (0.55-1.30); GLOMERULAR FILTRATION RATE > 60.0 (>39); GLUCOSE, FASTING 75 MG/DL (70-100); POTASSIUM SERUM 4.2 MEQ/L (3.5-5.1); SODIUM LEVEL 136 MEQ/L (136-145)
[2019-03-04] MEDS: FUROSEMIDE 40 MG TAB PO SCH ×2 (09:00→09:46)
[2019-03-04] MEDS: ENOXAPARIN 40 MG/0.4 ML SYRINGE (J1650) SC SCH (09:00)
[2019-03-04] MEDS ORDERED: CEFU50TA PO (09:36)
[2019-03-04] MEDS ORDERED: RISATAB3 PO (09:36)
[2019-03-04] MEDS: ASPIRIN 81 MG ENTERIC TAB PO SCH (09:46)
[2019-03-04] MEDS: CEFUROXIME 500 MG TAB PO SCH (09:46)
[2019-03-04] MEDS: LORATADINE 10 MG TAB PO SCH (09:46)
[2019-03-04] MEDS: LACTOBACILLUS ACIDOPHILUS CAP (BACID) PO SCH (09:46)
[2019-03-04] MEDS: POTASSIUM CHLORIDE 10 MEQ SR TABLET PO SCH (09:46)
[2019-03-04 09:47] VITALS: BP 130/74
[2019-03-04] MEDS: FLUTICASONE PROP 0.05% NASAL SPRAY 16 GM (FLONASE) NARES SCH (09:47)
[2019-03-04] MEDS: CARVedilol 3.125 MG TAB PO SCH (09:47)
--- NOTE | 2019-03-05 11:46 | DSES ---
DATE OF ADMISSION: 02/23/2019 DATE OF DISCHARGE: 03/04/2019 PRIMARY CARE PROVIDER: Dr. Mode Escalona and DILIP Astudillo ATTENDING PHYSICIAN: Dr. Brandan Bucio HISTORY OF PRESENT ILLNESS: 78-year-old female who presented to [facility] emergency department for complaints of a nonproductive cough, pressure in her chest, shortness of breath, feeling clammy, hot and sweaty. Workup in the emergency department proved positive for community acquired pneumonia. This was confirmed on chest CT with an infiltrate posteriorly in the lingular segment of the left upper lobe and a small pleural effusion. The patient was subsequently admitted to family medicine service. HOSPITAL COURSE: The patient was placed on Rocephin and Zithromax. She was provided with oxygen and nebulized bronchodilators. She tolerated these well. Her blood pressure medications, as well as diuretics were held initially. She was fully resumed on her routine medications and has tolerated everything well. Has been tolerating oral antibiotics for the last several days without difficulty. The patient had shown some significant weakness and was considered for acute rehabilitation unit. She continued to remain inpatient while waiting for decision determination from ARU; however, she has slowly continued to progress and improve and family has decided that they will take her home and will provide assistance with her needs at home. Today, the patient is anxious to return home. She denies chest pain, headache, blurred vision, dizziness, or shortness of breath. She was able to dress herself this morning. Vital signs are stable. She has remained afebrile. Blood cultures have returned negative, and she is not oxygen requiring. HEENT: Neck is supple without lymphadenopathy or jugular venous distention (JVD). CARDIOVASCULAR: Heart rate and rhythm are regular. PULMONARY: Lungs are clear to auscultation bilaterally. ABDOMEN: Soft and nontender. EXTREMITIES: Bilateral lower extremities are without any edema. NEUROLOGIC: The patient is alert and oriented times three. PSYCHIATRIC: Conversation is appropriate. Conversation is congruent. The patient does not maintain eye contact. ASSESSMENT: 1. Left sided pneumonia. 2. Weakness and debility. 3. Congestive heart failure (CHF). 4. Coronary artery disease. 5. Bipolar disorder. 6. Anxiety. PLAN: The patient will be discharged to home. She will followup with her primary care provider within the next 5 to 7 days. MEDICATIONS: - cefuroxime 500 mg tablet one by mouth twice a day for the next 2 days to finish out a 7 day course - probiotic one daily with meals for the next 7 days Other medications include, continued medications: - aspirin 81 mg one daily - benztropine methylate 0.25 mg by mouth at night - Biotin 1000 mcg one daily - candesartan 32 mg by mouth daily - carvedilol 3.125 mg by mouth twice a day - Divalproex 500 mg by mouth at night - fluticasone one spray in each nostril daily - furosemide 40 mg by mouth at night - hydralazine 50 mg by mouth four times a day - multivitamin one tablet daily - nitroglycerin 0.4 mg sublingual as needed for chest pain - potassium chloride 20 mEq by mouth daily - risperidone 1.5 mg by mouth at night - simvastatin 20 mg by mouth at night - Vision tablet one by mouth twice a day The patient is discharged in stable and satisfactory condition with no further questions at the time of discharge.
== END 2019-03-04 10:57 | disposition home or self-care (01) | DRG 194 ==
LOC: M ED 09:35 → M ED INP 11:55 → M MSPAV 02-24 11:13
PROVIDERS: ADMIT Internal Medicine; ATTEND Family Medicine
DX: J18.9 Pneumonia, unspecified organism (principal); I50.22 Chronic systolic (congestive) heart failure; Z79.82 Long term (current) use of aspirin; Z79.899 Other long term (current) drug therapy; Z88.8 Allergy status to other drugs, medicaments and biological substances; Z91.040 Latex allergy status; I25.10 Atherosclerotic heart disease of native coronary artery without angina pectoris; F31.9 Bipolar disorder, unspecified; F41.9 Anxiety disorder, unspecified; I11.0 Hypertensive heart disease with heart failure; E78.5 Hyperlipidemia, unspecified

== ENCOUNTER → 2019-03-31 | Outpatient (CLI) | payer MEDICARE, OTHER ==
[~2019-03-31] MED LIST changes: +BIOT1000 PO; +CEFU50TA PO; +HYDR50TA PO; +KLOR20TA42 PO; +RISATAB3 PO; +SAVITAB PO
--- NOTE | 2019-03-31 15:27 | REP ---
HISTORY: History of pneumonia. COMPARISON: Portable exam obtained 02/23/2019 which showed a left lower lobe opacity. There is bilateral CP angle blunting. The left lower lobe opacity seen previously has improved. There is mild cardiomegaly. The osseous structures are stable and intact. IMPRESSION: 1. Bilateral CP angle blunting. Followup to complete resolution is recommended. 2. Improved left lower lobe opacity. Followup to resolution is recommended. Electronically Signed by Gerson Rodríguez DO 03/31/2019 03:38 P
== END ==
LOC: M LAB 14:13
PROVIDERS: ATTEND Physician Assistant Medical
DX: J18.1 Lobar pneumonia, unspecified organism (principal)

== ENCOUNTER → 2019-05-07 | Outpatient (REF) | payer MEDICARE, OTHER | LOC: M LABDRAWP 09:52 | PROVIDERS: ATTEND Psychiatry & Neurology Psychiatry | DX: Z51.81 Encounter for therapeutic drug level monitoring (principal) ==

== ENCOUNTER → 2019-05-07 | Outpatient (CLI) | payer MEDICARE, OTHER ==
--- NOTE | 2019-05-07 11:42 | REP ---
CHEST X-RAY: Two views. HISTORY: Pneumonia right lower lobe. COMPARISON CHEST X-RAY: March 31, 2019. FINDINGS: There is moderate cardiac enlargement. Cardiothoracic ratio today measures 58.6%. There is blunting of the right lateral pleural angle indicating a small amount of pleural fluid. The lungs are hyperinflated as before. No left effusion is seen. There are granulomatous lymph node calcifications in the mediastinum. The aorta is tortuous and calcific. No infiltrate is seen. IMPRESSION: Moderate cardiac enlargement. Blunted right pleural angle consistent with small amount of right pleural fluid. Old granulomatous changes. No definite infiltrate. Electronically Signed by Ze Holley MD 05/07/2019 12:49 P
== END ==
LOC: M SMT 10:17
PROVIDERS: ATTEND Physician Assistant Medical
DX: R91.8 Other nonspecific abnormal finding of lung field (principal); J18.1 Lobar pneumonia, unspecified organism; I50.22 Chronic systolic (congestive) heart failure; Z51.81 Encounter for therapeutic drug level monitoring

== ENCOUNTER → 2019-05-07 | Outpatient (REF) | payer MEDICARE, OTHER ==
[2019-05-07 12:14] LABS: ALBUMIN 3.1 GM/DL (3.2-5.2); ALT/SGPT 18 U/L (12-78); BILIRUBIN,TOTAL 0.5 MG/DL (0.2-1.0); BLOOD UREA NITROGEN 18 MG/DL (7-18); CALCIUM LEVEL 8.6 MG/DL (8.8-10.2); CARBON DIOXIDE LEVEL 32 MEQ/L (21-32); CHLORIDE LEVEL 106 MEQ/L (98-107); CREATININE FOR GFR 0.55 MG/DL (0.55-1.30); GLOMERULAR FILTRATION RATE > 60.0 (>39); GLUCOSE, FASTING 73 MG/DL (70-100); NT-PRO BNP 1235 PG/ML (<450); POTASSIUM SERUM 3.8 MEQ/L (3.5-5.1); SODIUM LEVEL 145 MEQ/L (136-145); TOTAL PROTEIN 5.8 GM/DL (6.4-8.2)
== END ==
LOC: M SFHCPLAZ 09:35
PROVIDERS: ATTEND Physician Assistant Medical
DX: I50.22 Chronic systolic (congestive) heart failure (principal)

== ENCOUNTER → 2019-09-10 | Outpatient (CLI) | payer MEDICARE, OTHER ==
[~2019-09-10] MED LIST changes: -SIMV20TA2 PO; +SIMV20TA22 PO; -SIMV40TA2 PO; +SIMV40TA20 PO
--- NOTE | 2019-09-10 10:53 | REPMRS ---
Patient History The patient states she has not had a clinical breast exam in over a year. Family history of breast cancer under age 50 in maternal cousin, breast cancer under age 50 in paternal cousin, colorectal cancer under age 50 in paternal cousin, breast cancer at age 50 or over in maternal cousin, breast cancer at age 50 or over in maternal cousin. 3D TOMOSYNTHESIS WAS PERFORMED. [facility] lifetime risk for breast cancer is 2.5%. Digital Woman Screen Mammo: September 10, 2019 - Exam #: [id number] Bilateral CC and MLO view(s) were taken. Technologist: Jayshree Waddell, Technologist Prior study comparison: July 28, 2018, bilateral digital woman screen mammo performed at [facility], [place]. July 25, 2017, digital woman screen mammo performed at [facility]. FINDINGS: There are scattered fibroglandular densities. There has been no change in the appearance of the mammogram from the prior studies. There is a mild amount of residual fibroglandular tissue which is fairly symmetric. There is no interval development of dominant mass, architectural distortion, or clustered microcalcification suggestive of malignancy. Assessment: BI-RADS/ACR category 1 mammogram. Negative Mammogram. Recommendation Routine screening mammogram in 1 year (for women over age 40). This mammogram was interpreted with the aid of an FDA-approved computer-aided dectection system. Electronically Signed By: Kenyon Pruitt MD 09/10/19 0985
== END ==
LOC: M WHC 09:54
PROVIDERS: ATTEND Physician Assistant Medical
DX: Z12.31 Encounter for screening mammogram for malignant neoplasm of breast (principal)

== ENCOUNTER → 2019-09-16 | Outpatient (REF) | payer MEDICARE, OTHER | LOC: M SFHCPLAZ 16:43 | PROVIDERS: ATTEND Physician Assistant Medical | DX: R59.1 Generalized enlarged lymph nodes (principal) | CPT/HCPCS: 87486; 87581; 87633; 87798; 87880; 96372; G0463; J0561 ==

== ENCOUNTER → 2019-09-22 | Outpatient (REF) | payer MEDICARE, OTHER | LOC: M SFHCPLAZ 16:40 | PROVIDERS: ATTEND Physician Assistant Medical | DX: J02.0 Streptococcal pharyngitis (principal) | CPT/HCPCS: 87070; G0463 ==

== ENCOUNTER → 2019-10-15 | Outpatient (CLI) | payer MEDICARE, OTHER ==
[2019-10-15 13:23] LABS: BLOOD UREA NITROGEN 15 MG/DL (7-18); CARBON DIOXIDE LEVEL 27 MEQ/L (21-32); CHLORIDE LEVEL 105 MEQ/L (98-107); CREATININE FOR GFR 0.57 MG/DL (0.55-1.30); GLOMERULAR FILTRATION RATE > 60.0 (>32); GLUCOSE, FASTING 83 MG/DL (70-100); POTASSIUM SERUM 3.9 MEQ/L (3.5-5.1); SODIUM LEVEL 139 MEQ/L (136-145)
== END ==
LOC: M PLALAB 09:36
PROVIDERS: ATTEND Physician Assistant Medical
DX: N18.2 Chronic kidney disease, stage 2 (mild) (principal)

== ENCOUNTER → 2019-10-20 | Outpatient (CLI) | payer MEDICARE, OTHER ==
[~2019-10-20] MED LIST changes: +ISOVUE-370 76% 100ML VIAL (Q9967) As Ordered ONE
--- NOTE | 2019-10-20 17:27 | REP ---
CT of the chest with IV contrast: Comparisons are 02/23/2090. There are numerous tiny lung nodules bilaterally, not significantly changed from the prior studies. No enlarging nodules are identified. This is nonspecific and could represent granulomatous disease or possibly reticulonodular chronic lung disease. On 02/23/2019 there was a left lower lobe infiltrate and left pleural effusion. The infiltrate has resolved. There is a small left pleural effusion, decreased in size. There is no mediastinal adenopathy. There is borderline bilateral hilar adenopathy measuring up to 9 mm short axis. There is no axillary adenopathy. The thoracic aorta is unremarkable. Cardiac size is enlarged. No pericardial effusion. There is a cyst in the left lobe of the liver measuring up to 4.6 cm. This measured 4.2 cm previously. There is no adrenal mass. The visualized areas of the pancreas and spleen, adrenals and renal upper poles are unremarkable. Impression: Multiple stable small lung nodules. A small left pleural effusion. The previous left lower lobe infiltrate has resolved. Borderline bilateral hilar adenopathy. Electronically Signed by Kenyon Majano MD 10/20/2019 05:19 P
== END ==
LOC: M RAD 16:19
PROVIDERS: ATTEND Physician Assistant Medical
DX: R59.1 Generalized enlarged lymph nodes (principal); J90 Pleural effusion, not elsewhere classified
CPT/HCPCS: 71260; Q9967

== ENCOUNTER → 2019-10-21 | Outpatient (REF) | payer MEDICARE, OTHER ==
[~2019-10-21] MED LIST changes: -ISOVUE-370 76% 100ML VIAL (Q9967) As Ordered ONE
== END ==
LOC: M SFHCWAGY 13:47
PROVIDERS: ATTEND Nurse Practitioner Family
DX: Z12.4 Encounter for screening for malignant neoplasm of cervix (principal); Z12.12 Encounter for screening for malignant neoplasm of rectum
CPT/HCPCS: 82270; G0101; G0123

== ENCOUNTER → 2019-12-15 | Outpatient (CLI) | payer MEDICARE, OTHER ==
[2019-12-19 00:06] LABS: ASPERGILLUS FLAVUS ABY Negative (Neg:<1:1); ASPERGILLUS FUMIGATUS ABY Negative (Neg:<1:1); ASPERGILLUS NIGER ABY Negative (Neg:<1:1); BLASTOMYCES ANTIBODY LEVEL Negative (Neg:<1:1); CRYPTOCOCCUS ANTIGEN SER Negative (Negative); HISTOPLASMOSIS ANTIBODY Negative (Neg:<1:1)
== END ==
LOC: M PLALAB 10:43
PROVIDERS: ATTEND Internal Medicine Pulmonary Disease
DX: R91.8 Other nonspecific abnormal finding of lung field (principal)

== ENCOUNTER → 2020-02-03 | Outpatient (REF) | payer MEDICARE, OTHER ==
[~2020-02-03] MED LIST changes: -ASPI81TA85 PO; +ASPI81TA86 PO
== END ==
LOC: M SFHCPLAZ 17:24
PROVIDERS: ATTEND Physician Assistant Medical
DX: Z87.09 Personal history of other diseases of the respiratory system (principal)
CPT/HCPCS: 87070; 87880; G0463

== ENCOUNTER → 2020-06-23 | Outpatient (CLI) | payer MEDICARE, OTHER | LOC: M LABSMTC 13:19 | PROVIDERS: ATTEND Family Medicine | DX: Z20.828 Contact with and (suspected) exposure to other viral communicable diseases (principal) ==

== ENCOUNTER → 2020-06-27 | Outpatient (REF) | payer MEDICARE, OTHER ==
[~2020-06-27] MED LIST changes: +RISP-8 PO; -RISP1TAB3 PO
[2020-06-27 13:54] LABS: ALBUMIN 3.3 GM/DL (3.2-5.2); ALT/SGPT 21 U/L (12-78); BILIRUBIN,TOTAL 0.4 MG/DL (0.2-1.0); BLOOD UREA NITROGEN 24 MG/DL (7-18); CALCIUM LEVEL 8.8 MG/DL (8.8-10.2); CARBON DIOXIDE LEVEL 31 MEQ/L (21-32); CHLORIDE LEVEL 105 MEQ/L (98-107); CREATININE FOR GFR 0.63 MG/DL (0.55-1.30); GLOMERULAR FILTRATION RATE > 60.0 (>32); GLUCOSE, FASTING 74 MG/DL (70-100); NT-PRO BNP 1216 PG/ML (<450); POTASSIUM SERUM 4.3 MEQ/L (3.5-5.1); SODIUM LEVEL 140 MEQ/L (136-145); TOTAL PROTEIN 6.1 GM/DL (6.4-8.2); VALPROIC ACID (DEPAKOTE) 46.8 UG/ML (50.0-100.0)
[2020-06-27 13:58] LABS: PTH INTACT 27.6 PG/ML (18.5-88.0)
== END ==
LOC: M SFHCPLAZ 10:38
PROVIDERS: ATTEND Physician Assistant Medical
DX: I50.22 Chronic systolic (congestive) heart failure (principal); F31.9 Bipolar disorder, unspecified; E55.9 Vitamin D deficiency, unspecified; Z23 Encounter for immunization
CPT/HCPCS: 36415; 80053; 80164; 82306; 83880; 83970; 90682; G0008; G0463

== ENCOUNTER → 2021-01-12 | Outpatient (CLI) | payer MEDICARE, OTHER ==
[~2021-01-12] MED LIST changes: +ASPI-569 PO; -ASPI81TAEC PO
--- NOTE | 2021-01-12 14:22 | REP ---
INDICATION: ABNORMAL FINDING OF LUNG FILED COMPARISON: 10/22/2019 TECHNIQUE: Axial noncontrast images from the thoracic inlet to the upper abdomen with coronal and sagittal reformations. This CT examination was performed using the following dose reduction techniques: Automated exposure control, adjustment of mA and/or kv according to the patient's size, and use of iterative reconstruction technique. FINDINGS: The lung pickering demonstrate small scattered innumerable predominately non solid nodular densities along with small left pleural effusion and mild scattered linear scarring. Calcified mediastinal and left hilar lymph nodes are also identified along with few noncalcified prominent mediastinal lymph nodes. These findings are similar to prior examination dated 10/22/2019 and suggested underlying chronic/active possibly granulomatous process. No focal consolidation. No pneumothorax. Tracheobronchial tree is patent. The mediastinum demonstrates cardiomegaly with atherosclerotic changes to the coronary arteries and mitral valve as well as small dependent pericardial effusion again similar to prior examination. IMPRESSION: Above mentioned findings are relatively similar to prior examination and suggests sequelae of prior granulomatous process. Pulmonary consultation and follow-up may be warranted if diagnosis has not been previously made. No new acute process appreciated. <Electronically signed by Haja Davis > 01/12/21 [id number]
== END ==
LOC: M RAD 13:50
PROVIDERS: ATTEND Internal Medicine Pulmonary Disease
DX: R91.8 Other nonspecific abnormal finding of lung field (principal)

== ENCOUNTER → 2021-01-20 | Outpatient (REF) | payer MEDICARE, OTHER | LOC: M LAB REF 18:04 | PROVIDERS: ATTEND Internal Medicine Pulmonary Disease | DX: R91.8 Other nonspecific abnormal finding of lung field (principal) ==

== ENCOUNTER → 2021-03-07 | Outpatient (REF) | payer MEDICARE, OTHER | LOC: M LAB REF 13:12 | PROVIDERS: ATTEND Internal Medicine Pulmonary Disease | DX: B39.9 Histoplasmosis, unspecified (principal); J44.9 Chronic obstructive pulmonary disease, unspecified ==

== ENCOUNTER → 2021-03-08 | Outpatient (REF) | payer MEDICARE, OTHER | LOC: M LAB REF 12:59 | PROVIDERS: ATTEND Internal Medicine Pulmonary Disease | DX: B39.9 Histoplasmosis, unspecified (principal); J44.9 Chronic obstructive pulmonary disease, unspecified ==

== ENCOUNTER → 2021-04-19 | Outpatient (CLI) | payer MEDICARE, OTHER ==
[2021-04-19 11:58] LABS: BASO % 0.6 % (0.0-1.0); EOS # 0.1 10^3/uL (0.0-0.5); EOS % 1.6 % (0.0-3.0); HEMOGLOBIN 13.8 g/dl (12.0-15.5); LYMPH # 1.1 10^3/uL (1.5-5.0); LYMPH % 21.9 % (24.0-44.0); MEAN CORPUSCULAR HEMOGLOBIN 29.5 pg (27.0-33.0); MEAN CORPUSCULAR HGB CONC 32.9 g/dl (32.0-36.5); MEAN CORPUSCULAR VOLUME 89.7 fl (80.0-96.0); MONO # 0.8 10^3/uL (0.0-0.8); MONO % 15.5 % (2.0-8.0); NEUTROPHILS # 2.9 10^3/uL (1.5-8.5); NEUTROPHILS % 59.6 % (36.0-66.0); RED BLOOD COUNT 4.68 10^6/uL (4.00-5.40); WHITE BLOOD COUNT 4.9 10^3/uL (4.0-10.0)
[2021-04-19 12:24] LABS: ALT/SGPT 24 U/L (12-78); BILIRUBIN,TOTAL 0.6 MG/DL (0.2-1.0); BLOOD UREA NITROGEN 18 MG/DL (7-18); CALCIUM LEVEL 8.8 MG/DL (8.8-10.2); CARBON DIOXIDE LEVEL 31 MEQ/L (21-32); CHLORIDE LEVEL 110 MEQ/L (98-107); CHOLESTEROL LEVEL 132 MG/DL (<200); CHOLESTEROL RISK RATIO 2.588 (<5); CREATININE FOR GFR 0.54 MG/DL (0.55-1.30); GLOMERULAR FILTRATION RATE > 60.0 (>32); GLUCOSE, FASTING 82 MG/DL (70-100); HDL CHOLESTEROL 51 MG/DL (>40); LDL CHOLESTEROL 70 MG/DL (<100); NON-HDL-C 81 MG/DL; NT-PRO BNP 2811 PG/ML (<450); POTASSIUM SERUM 3.9 MEQ/L (3.5-5.1); SODIUM LEVEL 144 MEQ/L (136-145); TOTAL PROTEIN 6.2 GM/DL (6.4-8.2); TRIGLYCERIDES LEVEL 54 MG/DL (<150); VALPROIC ACID (DEPAKOTE) 53.6 UG/ML (50.0-100.0)
[2021-04-19 12:28] LABS: PTH INTACT 41.3 PG/ML (18.5-88.0); TOTAL 25(OH) VITAMIN D 51.5 NG/ML (30.0-100.0)
[2021-04-19 12:29] LABS: PLATELET COUNT, AUTOMATED 81 10^3/uL (150-450)
== END ==
LOC: M PLALAB 08:03
PROVIDERS: ATTEND Physician Assistant Medical
DX: I50.22 Chronic systolic (congestive) heart failure (principal); I11.0 Hypertensive heart disease with heart failure; E78.00 Pure hypercholesterolemia, unspecified; F31.9 Bipolar disorder, unspecified; E55.9 Vitamin D deficiency, unspecified; Z79.899 Other long term (current) drug therapy

== ENCOUNTER → 2021-04-29 | Outpatient (CLI) | payer MEDICARE, OTHER ==
[~2021-04-29] MED LIST changes: -KLOR20TA42 PO; +POTA-141 PO
[2021-04-29 10:29] LABS: BASO # 0.1 10^3/uL (0.0-0.2); BASO % 0.9 % (0.0-1.0); EOS # 0.1 10^3/uL (0.0-0.5); HEMATOCRIT 43.5 % (36.0-47.0); HEMOGLOBIN 14.4 g/dl (12.0-15.5); LYMPH % 17.8 % (24.0-44.0); MEAN CORPUSCULAR HEMOGLOBIN 29.3 pg (27.0-33.0); MEAN CORPUSCULAR HGB CONC 33.1 g/dl (32.0-36.5); MEAN CORPUSCULAR VOLUME 88.6 fl (80.0-96.0); MONO # 0.7 10^3/uL (0.0-0.8); MONO % 13.2 % (2.0-8.0); NEUTROPHILS # 3.6 10^3/uL (1.5-8.5); NEUTROPHILS % 65.9 % (36.0-66.0); PLATELET COUNT, AUTOMATED 100 10^3/uL (150-450); RED BLOOD COUNT 4.91 10^6/uL (4.00-5.40); WHITE BLOOD COUNT 5.4 10^3/uL (4.0-10.0)
[2021-04-29 10:52] LABS: ALT/SGPT 28 U/L (12-78); BILIRUBIN,TOTAL 0.5 MG/DL (0.2-1.0); BLOOD UREA NITROGEN 21 MG/DL (7-18); CALCIUM LEVEL 8.8 MG/DL (8.8-10.2); CARBON DIOXIDE LEVEL 32 MEQ/L (21-32); CHLORIDE LEVEL 108 MEQ/L (98-107); CHOLESTEROL LEVEL 122 MG/DL (<200); CHOLESTEROL RISK RATIO 2.301 (<5); CREATININE FOR GFR 0.49 MG/DL (0.55-1.30); GLOMERULAR FILTRATION RATE > 60.0 (>32); GLUCOSE, FASTING 82 MG/DL (70-100); HDL CHOLESTEROL 53 MG/DL (>40); LDL CHOLESTEROL 57 MG/DL (<100); NON-HDL-C 69 MG/DL; NT-PRO BNP 2626 PG/ML (<450); SODIUM LEVEL 144 MEQ/L (136-145); TOTAL PROTEIN 6.4 GM/DL (6.4-8.2); TRIGLYCERIDES LEVEL 61 MG/DL (<150); VALPROIC ACID (DEPAKOTE) 50.7 UG/ML (50.0-100.0)
[2021-05-01 11:12] LABS: TOTAL 25(OH) VITAMIN D 50.7 NG/ML (30.0-100.0)
[2021-05-01 11:13] LABS: PTH INTACT 46.3 PG/ML (18.5-88.0)
== END ==
LOC: M LAB 08:33
PROVIDERS: ATTEND Physician Assistant Medical
DX: I50.22 Chronic systolic (congestive) heart failure (principal); I11.0 Hypertensive heart disease with heart failure; E78.00 Pure hypercholesterolemia, unspecified; F31.9 Bipolar disorder, unspecified; E55.9 Vitamin D deficiency, unspecified; Z79.899 Other long term (current) drug therapy

== ENCOUNTER → 2021-05-24 | Outpatient (CLI) | payer MEDICARE, OTHER ==
--- NOTE | 2021-05-24 12:02 | REPMRS ---
Patient History The patient states she had a clinical breast exam in 2020. Family history of breast cancer under age 50 in maternal cousin, breast cancer under age 50 in paternal cousin, colorectal cancer under age 50 in paternal cousin, breast cancer at age 50 or over in maternal cousin, breast cancer at age 50 or over in maternal cousin. Tomosynthesis is performed. Volpara breast density is b. [facility] lifetime risk of breast cancer 1.7%. didn't tolerate much compression No breast complaints today Patient signed the MRS sheet Patient states she has had both Pfizer vaccines in her left arm but doesn't know dates Priors on PACS Patient Identification Verified Digital Woman Screen Mammo: May 24, 2021 - Exam #: [id number] Bilateral CC and MLO view(s) were taken. Technologist: Lanre Figueroaologist Prior study comparison: September 10, 2019, bilateral digital woman screen mammo performed at [facility]. July 28, 2018, bilateral digital woman screen mammo performed at [facility]. FINDINGS: There are scattered fibroglandular densities. There has been no change in the appearance of the mammogram from the prior studies. There is a mild amount of residual fibroglandular tissue which is fairly symmetric. There is no interval development of dominant mass, architectural distortion, or clustered microcalcification suggestive of malignancy. Assessment: BI-RADS/ACR category 1 mammogram. Negative Mammogram. Recommendation Routine screening mammogram in 1 year (for women over age 40). This mammogram was interpreted with the aid of an FDA-approved computer-aided dectection system. Electronically Signed By: Kenyon Pruitt MD 05/24/21 [id number]
== END ==
LOC: M WHC 10:23
PROVIDERS: ATTEND Physician Assistant Medical
DX: Z12.31 Encounter for screening mammogram for malignant neoplasm of breast (principal); Z80.3 Family history of malignant neoplasm of breast
CPT/HCPCS: 77063; 77067; G0463

== ENCOUNTER → 2021-07-20 | Outpatient (CLI) | payer MEDICARE, OTHER ==
[2021-07-20 14:34] LABS: BLOOD UREA NITROGEN 10 MG/DL (7-18); CALCIUM LEVEL 9.1 MG/DL (8.8-10.2); CARBON DIOXIDE LEVEL 32 MEQ/L (21-32); CHLORIDE LEVEL 107 MEQ/L (98-107); CREATININE FOR GFR 0.52 MG/DL (0.55-1.30); GLOMERULAR FILTRATION RATE > 60.0 (>32); GLUCOSE, FASTING 89 MG/DL (70-100); NT-PRO BNP 1951 PG/ML (<450); POTASSIUM SERUM 3.8 MEQ/L (3.5-5.1); SODIUM LEVEL 144 MEQ/L (136-145)
== END ==
LOC: M PLALAB 10:36
PROVIDERS: ATTEND Physician Assistant Medical
DX: I50.22 Chronic systolic (congestive) heart failure (principal)

== ENCOUNTER → 2021-08-07 | Outpatient (CLI) | payer MEDICARE, OTHER ==
[~2021-08-07] MED LIST changes: +CAND32TA18 PO; -CAND32TA9 PO
[2021-08-07 14:08] LABS: ALBUMIN 2.9 GM/DL (3.2-5.2); ALT/SGPT 18 U/L (12-78); BILIRUBIN,TOTAL 0.5 MG/DL (0.2-1.0); BLOOD UREA NITROGEN 21 MG/DL (7-18); CALCIUM LEVEL 8.5 MG/DL (8.8-10.2); CARBON DIOXIDE LEVEL 33 MEQ/L (21-32); CHLORIDE LEVEL 109 MEQ/L (98-107); CREATININE FOR GFR 0.58 MG/DL (0.55-1.30); GLOMERULAR FILTRATION RATE > 60.0 (>32); GLUCOSE, FASTING 99 MG/DL (70-100); NT-PRO BNP 1797 PG/ML (<450); POTASSIUM SERUM 3.7 MEQ/L (3.5-5.1); SODIUM LEVEL 147 MEQ/L (136-145); TOTAL PROTEIN 5.7 GM/DL (6.4-8.2)
== END ==
LOC: M PLALAB 10:33
PROVIDERS: ATTEND Physician Assistant Medical
DX: I50.22 Chronic systolic (congestive) heart failure (principal)

== ENCOUNTER → 2021-11-30 | Outpatient (CLI) | payer MEDICARE, OTHER ==
[2021-11-30 13:58] LABS: ALBUMIN 3.1 GM/DL (3.2-5.2); ALT/SGPT 41 U/L (12-78); BILIRUBIN,TOTAL 0.9 MG/DL (0.2-1.0); BLOOD UREA NITROGEN 17 MG/DL (7-18); CALCIUM LEVEL 8.6 MG/DL (8.8-10.2); CARBON DIOXIDE LEVEL 30 MEQ/L (21-32); CHLORIDE LEVEL 110 MEQ/L (98-107); CREATININE FOR GFR 0.55 MG/DL (0.55-1.30); GLOMERULAR FILTRATION RATE > 60.0 (>32); GLUCOSE, FASTING 85 MG/DL (70-100); NT-PRO BNP 1027 PG/ML (<450); POTASSIUM SERUM 3.9 MEQ/L (3.5-5.1); SODIUM LEVEL 144 MEQ/L (136-145); TOTAL PROTEIN 6.2 GM/DL (6.4-8.2); VALPROIC ACID (DEPAKOTE) 49.3 UG/ML (50.0-100.0)
[2021-11-30 14:02] LABS: PTH INTACT 37.8 PG/ML (18.5-88.0)
== END ==
LOC: M PLALAB 10:53
PROVIDERS: ATTEND Physician Assistant Medical
DX: E55.9 Vitamin D deficiency, unspecified (principal)

== ENCOUNTER → 2022-01-15 | Outpatient (CLI) | payer MEDICARE, OTHER | LOC: M RAD 12:41 | PROVIDERS: ATTEND Internal Medicine Pulmonary Disease | DX: R91.8 Other nonspecific abnormal finding of lung field (principal) ==

== ENCOUNTER → 2022-02-02 | Outpatient (CLI) | payer MEDICARE, OTHER ==
[2022-02-02 13:48] LABS: ALT/SGPT 23 U/L (12-78); BILIRUBIN,TOTAL 0.3 MG/DL (0.2-1.0); BLOOD UREA NITROGEN 28 MG/DL (7-18); CALCIUM LEVEL 8.8 MG/DL (8.8-10.2); CARBON DIOXIDE LEVEL 32 MEQ/L (21-32); CHLORIDE LEVEL 110 MEQ/L (98-107); GLOMERULAR FILTRATION RATE > 60.0 (>32); GLUCOSE, FASTING 84 MG/DL (70-100); NT-PRO BNP 1037 PG/ML (<450); POTASSIUM SERUM 4.2 MEQ/L (3.5-5.1); SODIUM LEVEL 145 MEQ/L (136-145); TOTAL PROTEIN 6.1 GM/DL (6.4-8.2)
== END ==
LOC: M PLALAB 09:48
PROVIDERS: ATTEND Physician Assistant Medical
DX: E78.00 Pure hypercholesterolemia, unspecified (principal); I50.22 Chronic systolic (congestive) heart failure

== ENCOUNTER → 2022-06-13 | Outpatient (CLI) | payer MEDICARE, OTHER ==
[~2022-06-13] MED LIST changes: -BENI5TAB3 PO; +CLOP75TA99 PO; +OLME5TAB27 PO; -PLAV1TAB2 PO
== END ==
LOC: M WHC 12:35
PROVIDERS: ATTEND Physician Assistant Medical
DX: Z12.31 Encounter for screening mammogram for malignant neoplasm of breast (principal)

== ENCOUNTER → 2022-08-21 | Outpatient (CLI) | payer MEDICARE, OTHER | LOC: M PLAIMG 10:05 | PROVIDERS: ATTEND Internal Medicine Critical Care Medicine | DX: R91.1 Solitary pulmonary nodule (principal) ==

== ENCOUNTER → 2022-12-12 | Outpatient (REF) | payer MEDICARE, OTHER ==
[~2022-12-12] MED LIST changes: +BENZ0.5T2 PO; -BENZ0.5T23 PO
== END ==
LOC: M SFHCPLAZ 11:33
PROVIDERS: ATTEND Physician Assistant Medical
DX: E55.9 Vitamin D deficiency, unspecified (principal); I11.0 Hypertensive heart disease with heart failure; E78.2 Mixed hyperlipidemia; I50.22 Chronic systolic (congestive) heart failure

== ENCOUNTER → 2022-12-13 | Outpatient (CLI) | payer MEDICARE, OTHER ==
[2022-12-13 16:37] LABS: BASO % 0.8 % (0.0-1.0); EOS # 0.1 10^3/uL (0.0-0.5); EOS % 1.3 % (0.0-3.0); HEMATOCRIT 41.1 % (36.0-47.0); HEMOGLOBIN 13.2 g/dl (12.0-15.5); LYMPH # 0.8 10^3/uL (1.5-5.0); LYMPH % 17.4 % (24.0-44.0); MEAN CORPUSCULAR HEMOGLOBIN 30.1 pg (27.0-33.0); MEAN CORPUSCULAR HGB CONC 32.1 g/dl (32.0-36.5); MEAN CORPUSCULAR VOLUME 93.6 fl (80.0-96.0); MONO # 0.8 10^3/uL (0.0-0.8); MONO % 16.4 % (2.0-8.0); NEUTROPHILS % 63.9 % (36.0-66.0); RED BLOOD COUNT 4.39 10^6/uL (4.00-5.40); WHITE BLOOD COUNT 4.8 10^3/uL (4.0-10.0)
[2022-12-13 16:38] LABS: ALBUMIN 3.3 G/DL (3.2-5.2); ALKALINE PHOSPHATASE 70 U/L (46-116); ALT/SGPT 27 U/L (7.0-40); AST/SGOT 26 U/L (<34); BILIRUBIN,TOTAL 0.5 MG/DL (0.3-1.2); BLOOD UREA NITROGEN 18 MG/DL (9-23); CALCIUM LEVEL 8.9 MG/DL (8.3-10.6); CARBON DIOXIDE LEVEL 31 MMOL/L (20-31); CHLORIDE LEVEL 107 MMOL/L (98-107); CHOLESTEROL LEVEL 114 MG/DL (<200); CHOLESTEROL RISK RATIO 2.44 (<5); CREATININE FOR GFR 0.62 MG/DL (0.55-1.30); GLOMERULAR FILTRATION RATE > 60.0 (>32); GLUCOSE, FASTING 87 MG/DL (74-106); HDL CHOLESTEROL 46.7 MG/DL (>40); LDL CHOLESTEROL 53.1 MG/DL (<100); NON-HDL-C 67.3 MG/DL; PLATELET COUNT, AUTOMATED 87 10^3/uL (150-450); POTASSIUM SERUM 4.2 MMOL/L (3.5-5.1); SODIUM LEVEL 142 MMOL/L (136-145); TOTAL PROTEIN 6.1 G/DL (5.7-8.2); TRIGLYCERIDES LEVEL 71 MG/DL (<150)
[2022-12-13 16:42] LABS: CPK CREATINE PHOSPHOKINASE 41 U/L (34-145)
== END ==
LOC: M PLALAB 13:36
PROVIDERS: ATTEND Physician Assistant Medical
DX: Z00.00 Encounter for general adult medical examination without abnormal findings (principal); E55.9 Vitamin D deficiency, unspecified; E78.2 Mixed hyperlipidemia; I11.0 Hypertensive heart disease with heart failure

== ENCOUNTER → 2023-06-17 | Outpatient (CLI) | payer MEDICARE, OTHER | LOC: M WHC 13:36 | PROVIDERS: ATTEND Physician Assistant Medical | DX: Z12.31 Encounter for screening mammogram for malignant neoplasm of breast (principal) ==

== ENCOUNTER → 2024-06-03 | Outpatient (REF) ==
[~2024-06-03] MED LIST changes: +HYDR-161 PO; -HYDR10TAB PO; -HYDR50TA PO; +HYDR50TA47 PO; +RISP-105 PO; -RISP-8 PO
[2024-06-03 10:46] LABS: HEMATOCRIT 36.5 % (36.0-47.0); HEMOGLOBIN 11.9 g/dl (12.0-15.5); MEAN CORPUSCULAR HEMOGLOBIN 30.1 pg (27.0-33.0); MEAN CORPUSCULAR HGB CONC 32.6 g/dl (32.0-36.5); MEAN CORPUSCULAR VOLUME 92.4 fl (80.0-96.0); PLATELET COUNT, AUTOMATED 117 10^3/uL (150-450); RED BLOOD COUNT 3.95 10^6/uL (4.00-5.40); WHITE BLOOD COUNT 3.9 10^3/uL (4.0-10.0)
[2024-06-03 11:15] LABS: BLOOD UREA NITROGEN 13 MG/DL (9-23); CALCIUM LEVEL 8.8 MG/DL (8.3-10.6); CARBON DIOXIDE LEVEL 26 MMOL/L (20-31); CHLORIDE LEVEL 108 MMOL/L (98-107); CREATININE FOR GFR 0.55 MG/DL (0.55-1.30); GLOMERULAR FILTRATION RATE > 60.0 (>32); GLUCOSE, FASTING 108 MG/DL (74-106); POTASSIUM SERUM 3.6 MMOL/L (3.5-5.1); SODIUM LEVEL 141 MMOL/L (136-145)
== END ==
PROVIDERS: ATTEND Internal Medicine
DX: D64.9 Anemia, unspecified (principal)

== ENCOUNTER → 2024-06-10 | Outpatient (REF) ==
[2024-06-10 09:54] LABS: HEMATOCRIT 37.8 % (36.0-47.0); HEMOGLOBIN 12.4 g/dl (12.0-15.5); MEAN CORPUSCULAR HEMOGLOBIN 30.3 pg (27.0-33.0); MEAN CORPUSCULAR HGB CONC 32.8 g/dl (32.0-36.5); MEAN CORPUSCULAR VOLUME 92.4 fl (80.0-96.0); PLATELET COUNT, AUTOMATED 103 10^3/uL (150-450); RED BLOOD COUNT 4.09 10^6/uL (4.00-5.40); WHITE BLOOD COUNT 3.4 10^3/uL (4.0-10.0)
[2024-06-10 10:21] LABS: BLOOD UREA NITROGEN 15 MG/DL (9-23); CARBON DIOXIDE LEVEL 31 MMOL/L (20-31); CHLORIDE LEVEL 105 MMOL/L (98-107); CREATININE FOR GFR 0.51 MG/DL (0.55-1.30); GLOMERULAR FILTRATION RATE > 60.0 (>32); GLUCOSE, FASTING 108 MG/DL (74-106); POTASSIUM SERUM 3.9 MMOL/L (3.5-5.1); SODIUM LEVEL 139 MMOL/L (136-145)
== END ==
PROVIDERS: ATTEND Internal Medicine
DX: D64.9 Anemia, unspecified (principal)

== ENCOUNTER → 2024-07-17 | Outpatient (REF) | payer MEDICARE, OTHER ==
[2024-07-17 08:57] LABS: HEMATOCRIT 38.7 % (36.0-47.0); HEMOGLOBIN 12.8 g/dl (12.0-15.5); MEAN CORPUSCULAR HEMOGLOBIN 30.3 pg (27.0-33.0); MEAN CORPUSCULAR HGB CONC 33.1 g/dl (32.0-36.5); MEAN CORPUSCULAR VOLUME 91.5 fl (80.0-96.0); PLATELET COUNT, AUTOMATED 109 10^3/uL (150-450); RED BLOOD COUNT 4.23 10^6/uL (4.00-5.40); WHITE BLOOD COUNT 4.2 10^3/uL (4.0-10.0)
[2024-07-17 09:21] LABS: BLOOD UREA NITROGEN 13 MG/DL (9-23); CARBON DIOXIDE LEVEL 29 MMOL/L (20-31); CHLORIDE LEVEL 105 MMOL/L (98-107); CREATININE FOR GFR 0.52 MG/DL (0.55-1.30); GLOMERULAR FILTRATION RATE > 60.0 (>32); GLUCOSE, FASTING 79 MG/DL (74-106); POTASSIUM SERUM 3.9 MMOL/L (3.5-5.1); SODIUM LEVEL 140 MMOL/L (136-145)
== END ==
PROVIDERS: ATTEND Internal Medicine
DX: I10 Essential (primary) hypertension (principal)

== ENCOUNTER → 2024-08-03 | Outpatient (REF) ==
[2024-08-03 09:36] LABS: HEMATOCRIT 40.5 % (36.0-47.0); HEMOGLOBIN 13.1 g/dl (12.0-15.5); MEAN CORPUSCULAR HEMOGLOBIN 29.8 pg (27.0-33.0); MEAN CORPUSCULAR HGB CONC 32.3 g/dl (32.0-36.5); MEAN CORPUSCULAR VOLUME 92.3 fl (80.0-96.0); RED BLOOD COUNT 4.39 10^6/uL (4.00-5.40); WHITE BLOOD COUNT 3.8 10^3/uL (4.0-10.0)
[2024-08-03 10:08] LABS: BLOOD UREA NITROGEN 15 MG/DL (9-23); CALCIUM LEVEL 8.8 MG/DL (8.3-10.6); CARBON DIOXIDE LEVEL 29 MMOL/L (20-31); CHLORIDE LEVEL 103 MMOL/L (98-107); GLOMERULAR FILTRATION RATE > 60.0 (>32); GLUCOSE, FASTING 82 MG/DL (74-106); POTASSIUM SERUM 4.2 MMOL/L (3.5-5.1); SODIUM LEVEL 140 MMOL/L (136-145)
[2024-08-03 10:39] LABS: PLATELET COUNT, AUTOMATED 89 10^3/uL (150-450)
== END ==
PROVIDERS: ATTEND Internal Medicine
DX: D64.9 Anemia, unspecified (principal)

== ENCOUNTER → 2024-08-24 | Outpatient (CLI) | payer MEDICARE, OTHER ==
[2024-08-24 15:03] LABS: HEMATOCRIT 41.3 % (36.0-47.0); HEMOGLOBIN 13.8 g/dl (12.0-15.5); MEAN CORPUSCULAR HEMOGLOBIN 30.2 pg (27.0-33.0); MEAN CORPUSCULAR HGB CONC 33.4 g/dl (32.0-36.5); MEAN CORPUSCULAR VOLUME 90.4 fl (80.0-96.0); PLATELET COUNT, AUTOMATED 104 10^3/uL (150-450); RED BLOOD COUNT 4.57 10^6/uL (4.00-5.40); WHITE BLOOD COUNT 4.9 10^3/uL (4.0-10.0)
[2024-08-24 15:30] LABS: BLOOD UREA NITROGEN 15 MG/DL (9-23); CALCIUM LEVEL 8.7 MG/DL (8.3-10.6); CARBON DIOXIDE LEVEL 29 MMOL/L (20-31); CHLORIDE LEVEL 102 MMOL/L (98-107); CREATININE FOR GFR 0.44 MG/DL (0.55-1.30); GLOMERULAR FILTRATION RATE > 60.0 (>32); GLUCOSE, FASTING 91 MG/DL (74-106); POTASSIUM SERUM 4.2 MMOL/L (3.5-5.1); SODIUM LEVEL 137 MMOL/L (136-145)
== END ==
LOC: M RAD 13:42
PROVIDERS: ATTEND Internal Medicine
DX: R10.30 Lower abdominal pain, unspecified (principal)

== ENCOUNTER → 2024-09-02 | Outpatient (REF) | payer MEDICARE, OTHER ==
[2024-09-02 15:44] LABS: HEMATOCRIT 41.4 % (36.0-47.0); HEMOGLOBIN 13.4 g/dl (12.0-15.5); MEAN CORPUSCULAR HEMOGLOBIN 29.6 pg (27.0-33.0); MEAN CORPUSCULAR HGB CONC 32.4 g/dl (32.0-36.5); MEAN CORPUSCULAR VOLUME 91.4 fl (80.0-96.0); PLATELET COUNT, AUTOMATED 104 10^3/uL (150-450); RED BLOOD COUNT 4.53 10^6/uL (4.00-5.40); WHITE BLOOD COUNT 3.4 10^3/uL (4.0-10.0)
[2024-09-02 16:18] LABS: BLOOD UREA NITROGEN 15 MG/DL (9-23); CALCIUM LEVEL 8.8 MG/DL (8.3-10.6); CARBON DIOXIDE LEVEL 31 MMOL/L (20-31); CHLORIDE LEVEL 106 MMOL/L (98-107); CREATININE FOR GFR 0.58 MG/DL (0.55-1.30); GLOMERULAR FILTRATION RATE > 60.0 (>32); GLUCOSE, FASTING 71 MG/DL (74-106); POTASSIUM SERUM 4.4 MMOL/L (3.5-5.1); SODIUM LEVEL 141 MMOL/L (136-145)
== END ==
PROVIDERS: ATTEND Internal Medicine
DX: I10 Essential (primary) hypertension (principal)

== ENCOUNTER → 2024-11-30 | Outpatient (REF) | payer MEDICARE, OTHER, MEDICAID ==
[2024-11-30 11:22] LABS: HEMATOCRIT 41.1 % (36.0-47.0); HEMOGLOBIN 13.3 g/dl (12.0-15.5); MEAN CORPUSCULAR HEMOGLOBIN 29.8 pg (27.0-33.0); MEAN CORPUSCULAR HGB CONC 32.4 g/dl (32.0-36.5); MEAN CORPUSCULAR VOLUME 92.2 fl (80.0-96.0); RED BLOOD COUNT 4.46 10^6/uL (4.00-5.40); WHITE BLOOD COUNT 3.3 10^3/uL (4.0-10.0)
[2024-11-30 11:24] LABS: PLATELET COUNT, AUTOMATED 94 10^3/uL (150-450)
[2024-11-30 11:51] LABS: BLOOD UREA NITROGEN 12 MG/DL (9-23); CALCIUM LEVEL 8.7 MG/DL (8.3-10.6); CARBON DIOXIDE LEVEL 28 MMOL/L (20-31); CHLORIDE LEVEL 105 MMOL/L (98-107); CREATININE FOR GFR 0.51 MG/DL (0.55-1.30); GLOMERULAR FILTRATION RATE > 90.0 (>32); GLUCOSE, FASTING 91 MG/DL (74-106); POTASSIUM SERUM 3.9 MMOL/L (3.5-5.1); SODIUM LEVEL 144 MMOL/L (136-145)
== END ==
PROVIDERS: ATTEND Internal Medicine
DX: D64.9 Anemia, unspecified (principal)

== ENCOUNTER → 2024-12-04 | Outpatient (REF) | payer MEDICARE, OTHER, MEDICAID ==
[2024-12-04 10:01] LABS: EOS # 0.1 10^3/uL (0.0-0.5); EOS % 1.6 % (0.0-3.0); HEMATOCRIT 36.3 % (36.0-47.0); HEMOGLOBIN 11.9 g/dl (12.0-15.5); LYMPH # 0.6 10^3/uL (1.5-5.0); LYMPH % 17.9 % (24.0-44.0); MEAN CORPUSCULAR HEMOGLOBIN 29.9 pg (27.0-33.0); MEAN CORPUSCULAR HGB CONC 32.8 g/dl (32.0-36.5); MEAN CORPUSCULAR VOLUME 91.2 fl (80.0-96.0); MONO # 0.6 10^3/uL (0.0-0.8); MONO % 17.9 % (2.0-8.0); NEUTROPHILS # 1.9 10^3/uL (1.5-8.5); NEUTROPHILS % 61.3 % (36.0-66.0); RED BLOOD COUNT 3.98 10^6/uL (4.00-5.40); WHITE BLOOD COUNT 3.1 10^3/uL (4.0-10.0)
[2024-12-04 10:03] LABS: PLATELET COUNT, AUTOMATED 74 10^3/uL (150-450)
[2024-12-04 10:31] LABS: BLOOD UREA NITROGEN 15 MG/DL (9-23); CALCIUM LEVEL 8.3 MG/DL (8.3-10.6); CARBON DIOXIDE LEVEL 30 MMOL/L (20-31); CHLORIDE LEVEL 104 MMOL/L (98-107); CREATININE FOR GFR 0.51 MG/DL (0.55-1.30); GLOMERULAR FILTRATION RATE > 90.0 (>32); GLUCOSE, FASTING 124 MG/DL (74-106); POTASSIUM SERUM 3.8 MMOL/L (3.5-5.1); SODIUM LEVEL 141 MMOL/L (136-145)
== END ==
PROVIDERS: ATTEND Internal Medicine
DX: R41.0 Disorientation, unspecified (principal)

== ENCOUNTER → 2024-12-08 | Outpatient (REF) | payer MEDICARE, OTHER, MEDICAID ==
[2024-12-08 14:17] LABS: BASO % 1.2 % (0.0-1.0); EOS # 0.1 10^3/uL (0.0-0.5); EOS % 2.7 % (0.0-3.0); HEMATOCRIT 37.5 % (36.0-47.0); HEMOGLOBIN 12.2 g/dl (12.0-15.5); LYMPH # 0.6 10^3/uL (1.5-5.0); MEAN CORPUSCULAR HEMOGLOBIN 29.7 pg (27.0-33.0); MEAN CORPUSCULAR HGB CONC 32.5 g/dl (32.0-36.5); MEAN CORPUSCULAR VOLUME 91.2 fl (80.0-96.0); MONO # 0.5 10^3/uL (0.0-0.8); MONO % 15.8 % (2.0-8.0); NEUTROPHILS # 2.1 10^3/uL (1.5-8.5); NEUTROPHILS % 61.3 % (36.0-66.0); RED BLOOD COUNT 4.11 10^6/uL (4.00-5.40); WHITE BLOOD COUNT 3.4 10^3/uL (4.0-10.0)
[2024-12-08 14:43] LABS: BLOOD UREA NITROGEN 14 MG/DL (9-23); CALCIUM LEVEL 8.4 MG/DL (8.3-10.6); CARBON DIOXIDE LEVEL 29 MMOL/L (20-31); CHLORIDE LEVEL 104 MMOL/L (98-107); CREATININE FOR GFR 0.46 MG/DL (0.55-1.30); GLOMERULAR FILTRATION RATE > 90.0 (>32); GLUCOSE, FASTING 89 MG/DL (74-106); POTASSIUM SERUM 4.2 MMOL/L (3.5-5.1); SODIUM LEVEL 141 MMOL/L (136-145)
[2024-12-08 15:15] LABS: PLATELET COUNT, AUTOMATED 74 10^3/uL (150-450)
== END ==
PROVIDERS: ATTEND Internal Medicine
DX: D64.9 Anemia, unspecified (principal)

== ENCOUNTER → 2025-03-01 | Outpatient (REF) | payer MEDICARE, OTHER, MEDICAID ==
[~2025-03-01] MED LIST changes: -BIOT1000 PO; +BIOT10002 PO; +DIVA-41 PO; -DIVA500T94 PO
[2025-03-01 10:12] LABS: PLATELET COUNT, AUTOMATED 108 10^3/uL (150-450)
[2025-03-01 10:43] LABS: CALCIUM LEVEL 8.9 MG/DL (8.3-10.6); CARBON DIOXIDE LEVEL 31.0 MMOL/L (20-31); CHLORIDE LEVEL 102.0 MMOL/L (98-107); CREATININE FOR GFR 0.64 MG/DL (0.55-1.30); GLOMERULAR FILTRATION RATE 86.6 (>32); POTASSIUM SERUM 3.9 MMOL/L (3.5-5.1); SODIUM LEVEL 145.0 MMOL/L (136-145)
== END ==
PROVIDERS: ATTEND Internal Medicine
DX: D64.9 Anemia, unspecified (principal)

== ENCOUNTER → 2025-03-03 | Outpatient (REF) | payer MEDICARE, OTHER, MEDICAID ==
[2025-03-03 18:50] LABS: PLATELET COUNT, AUTOMATED 102 10^3/uL (150-450)
[2025-03-03 19:22] LABS: THYROXINE (T4) 9.3 UG/DL (4.5-10.9)
[2025-03-03 19:33] LABS: ALT/SGPT 25.0 U/L (7.0-40); AST/SGOT 48.0 U/L (<34); CALCIUM LEVEL 8.5 MG/DL (8.3-10.6); CARBON DIOXIDE LEVEL 26.0 MMOL/L (20-31); CHLORIDE LEVEL 103.0 MMOL/L (98-107); CREATININE FOR GFR 0.56 MG/DL (0.55-1.30); GLOMERULAR FILTRATION RATE 89.4 (>32); SODIUM LEVEL 140.0 MMOL/L (136-145); TOTAL T3 106.4 NG/DL (60.0-181.0)
[2025-03-03 19:40] LABS: POTASSIUM SERUM 5.7 MMOL/L (3.5-5.1)
== END ==
PROVIDERS: ATTEND Physician Assistant
DX: R63.4 Abnormal weight loss (principal)

== ENCOUNTER → 2025-03-05 | Outpatient (REF) | payer MEDICARE, OTHER, MEDICAID ==
[2025-03-05 09:00] LABS: PLATELET COUNT, AUTOMATED 94 10^3/uL (150-450)
[2025-03-05 09:13] LABS: CALCIUM LEVEL 8.3 MG/DL (8.3-10.6); CARBON DIOXIDE LEVEL 30.0 MMOL/L (20-31); CHLORIDE LEVEL 103.0 MMOL/L (98-107); CREATININE FOR GFR 0.57 MG/DL (0.55-1.30); GLOMERULAR FILTRATION RATE 89.0 (>32); POTASSIUM SERUM 3.7 MMOL/L (3.5-5.1); SODIUM LEVEL 145.0 MMOL/L (136-145)
== END ==
PROVIDERS: ATTEND Internal Medicine
DX: G20.A1 Parkinson's disease without dyskinesia, without mention of fluctuations (principal); Z79.899 Other long term (current) drug therapy

== ENCOUNTER → 2025-03-08 | Outpatient (REF) | payer MEDICARE, OTHER, MEDICAID ==
[2025-03-08 11:19] LABS: CALCIUM LEVEL 8.1 MG/DL (8.3-10.6); CARBON DIOXIDE LEVEL 30.0 MMOL/L (20-31); CHLORIDE LEVEL 105.0 MMOL/L (98-107); CREATININE FOR GFR 0.57 MG/DL (0.55-1.30); GLOMERULAR FILTRATION RATE 89.0 (>32); POTASSIUM SERUM 3.8 MMOL/L (3.5-5.1); SODIUM LEVEL 146.0 MMOL/L (136-145)
== END ==
PROVIDERS: ATTEND Internal Medicine
DX: E87.5 Hyperkalemia (principal)

== ENCOUNTER → 2025-03-17 | Outpatient (REF) | payer MEDICARE, OTHER, MEDICAID ==
[2025-03-17 10:47] LABS: CALCIUM LEVEL 11.0 MG/DL (8.3-10.6); CARBON DIOXIDE LEVEL 29 MMOL/L (20-31); CHLORIDE LEVEL 105 MMOL/L (98-107); CREATININE FOR GFR 0.54 MG/DL (0.55-1.30); GLOMERULAR FILTRATION RATE > 90.0 (>32); POTASSIUM SERUM 3.9 MMOL/L (3.5-5.1); SODIUM LEVEL 144 MMOL/L (136-145)
== END ==
PROVIDERS: ATTEND Internal Medicine
DX: E86.0 Dehydration (principal)

== ENCOUNTER → 2025-04-20 | Outpatient (REF) | payer MEDICARE, OTHER, MEDICAID ==
[2025-04-20 18:47] LABS: PLATELET COUNT, AUTOMATED 103 10^3/uL (150-450)
[2025-04-20 19:12] LABS: CALCIUM LEVEL 8.1 MG/DL (8.3-10.6); CARBON DIOXIDE LEVEL 29 MMOL/L (20-31); CHLORIDE LEVEL 98 MMOL/L (98-107); CREATININE FOR GFR 0.48 MG/DL (0.55-1.30); GLOMERULAR FILTRATION RATE > 90.0 (>32); POTASSIUM SERUM 4.9 MMOL/L (3.5-5.1); SODIUM LEVEL 133 MMOL/L (136-145)
== END ==
PROVIDERS: ATTEND Internal Medicine
DX: R06.02 Shortness of breath (principal)

== ENCOUNTER → 2025-04-20 | Outpatient (REF) | payer MEDICARE, OTHER, MEDICAID | PROVIDERS: ATTEND Internal Medicine | DX: R06.02 Shortness of breath (principal) ==

== ENCOUNTER → 2025-05-11 | Outpatient (REF) | payer MEDICARE, OTHER, MEDICAID ==
[2025-05-11 18:25] LABS: BASO # 0.1 10^3/uL (0.0-0.2); BASO % 1.4 % (0.0-1.0); EOS # 0.1 10^3/uL (0.0-0.5); EOS % 3.0 % (0.0-3.0); LYMPH # 0.7 10^3/uL (1.5-5.0); LYMPH % 15.7 % (24.0-44.0); MONO # 0.7 10^3/uL (0.0-0.8); MONO % 16.6 % (2.0-8.0); NEUTROPHILS # 2.7 10^3/uL (1.5-8.5); NEUTROPHILS % 63.1 % (36.0-66.0); PLATELET COUNT, AUTOMATED 101 10^3/uL (150-450)
[2025-05-11 19:07] LABS: CALCIUM LEVEL 8.0 MG/DL (8.3-10.6); CARBON DIOXIDE LEVEL 23 MMOL/L (20-31); CHLORIDE LEVEL 107 MMOL/L (98-107); CREATININE FOR GFR 0.51 MG/DL (0.55-1.30); GLOMERULAR FILTRATION RATE > 90.0 (>32); POTASSIUM SERUM 5.2 MMOL/L (3.5-5.1); SODIUM LEVEL 143 MMOL/L (136-145)
== END ==
PROVIDERS: ATTEND Physician Assistant
DX: R06.02 Shortness of breath (principal)

== ENCOUNTER → 2025-05-24 | Outpatient (REF) | payer MEDICARE, OTHER, MEDICAID ==
[2025-05-24 13:33] LABS: PLATELET COUNT, AUTOMATED 105 10^3/uL (150-450)
[2025-05-24 13:57] LABS: CALCIUM LEVEL 8.7 MG/DL (8.3-10.6); CARBON DIOXIDE LEVEL 32.0 MMOL/L (20-31); CHLORIDE LEVEL 106.0 MMOL/L (98-107); CREATININE FOR GFR 0.59 MG/DL (0.55-1.30); GLOMERULAR FILTRATION RATE 88.3 (>32); POTASSIUM SERUM 3.8 MMOL/L (3.5-5.1); SODIUM LEVEL 148.0 MMOL/L (136-145)
== END ==
PROVIDERS: ATTEND Internal Medicine
DX: D64.9 Anemia, unspecified (principal)

== ENCOUNTER → 2025-05-28 | Outpatient (REF) | payer MEDICARE, OTHER, MEDICAID ==
[2025-05-28 11:16] LABS: CALCIUM LEVEL 8.6 MG/DL (8.3-10.6); CARBON DIOXIDE LEVEL 30.0 MMOL/L (20-31); CHLORIDE LEVEL 108.0 MMOL/L (98-107); CREATININE FOR GFR 0.55 MG/DL (0.55-1.30); GLOMERULAR FILTRATION RATE 89.8 (>32); POTASSIUM SERUM 4.2 MMOL/L (3.5-5.1); SODIUM LEVEL 148.0 MMOL/L (136-145)
== END ==
PROVIDERS: ATTEND Internal Medicine
DX: R41.82 Altered mental status, unspecified (principal)

== ENCOUNTER → 2025-06-02 | Outpatient (REF) | payer MEDICARE, OTHER, MEDICAID | PROVIDERS: ATTEND Internal Medicine | DX: D64.9 Anemia, unspecified (principal); Z53.8 Procedure and treatment not carried out for other reasons ==